=== PATIENT | male | born 1990 | race Caucasian/White ===

== ENCOUNTER 2023-10-26 15:31 | Outpatient (OUT) | payer OTHER, SELFPAY ==
[2023-10-26 15:54] LABS: Basophils Absolute Auto 0.1 10^3/uL (0.0-0.1); Basophils Percent Auto 0.6 % (0.2-2.0); Eosinophils Absolute Auto 0.1 10^3/uL (0.0-0.7); Eosinophils Percent Auto 1.7 % (0.9-7.0); Hematocrit 40.2 % (42.0-54.0); Hemoglobin 13.5 g/dL (14.0-18.0); Immature Granulocytes Abs Auto 0.18 10^3/uL (0.00-0.03); Immature Granulocytes Pct Auto 2.2 % (0.0-0.5); Lymphocytes Absolute Auto 2.2 10^3/uL (1.2-3.8); Mean Corpuscular HGB Conc 33.6 g/dL (29.9-35.2); Mean Corpuscular Hemoglobin 28.8 pg (25.9-34.0); Mean Corpuscular Volume 85.7 fL (80.0-94.0); Mean Platelet Volume 11.6 fL (9.5-13.5); Monocytes Absolute Auto 0.6 10^3/uL (0.3-0.8); Monocytes Percent Auto 6.8 % (1.7-12.0); Neutrophils Absolute Auto 5.1 10^3/uL (1.4-6.5); Neutrophils Percent Auto 61.7 % (43.0-75.0); Platelet Count 230 10^3/uL (150-450); Red Blood Count 4.69 10^6/uL (4.70-6.10); Red Cell Distribution Width 12.7 % (11.0-15.0); White Blood Count 8.2 10^3/uL (4.0-11.0)
== END 2023-10-26 15:32 | disposition home or self-care (01) ==
LOC: LAB 15:34
PROVIDERS: PCP Internal Medicine; Visit Provider Internal Medicine
DX: D72.89 Other specified disorders of white blood cells (principal)
CPT/HCPCS: 36415; 85025

== ENCOUNTER 2023-11-17 07:46 | Outpatient (RCR) | payer OTHER, SELFPAY ==
[2023-11-17 14:47] LABS: Basophils Absolute Auto 0.1 10^3/uL (0.0-0.1); Basophils Percent Auto 0.8 % (0.2-2.0); Eosinophils Absolute Auto 0.2 10^3/uL (0.0-0.7); Eosinophils Percent Auto 2.1 % (0.9-7.0); Hematocrit 43.8 % (42.0-54.0); Hemoglobin 14.8 g/dL (14.0-18.0); Immature Granulocytes Abs Auto 0.16 10^3/uL (0.00-0.03); Immature Granulocytes Pct Auto 1.9 % (0.0-0.5); Lymphocytes Absolute Auto 2.1 10^3/uL (1.2-3.8); Lymphocytes Percent Auto 24.2 % (20.5-60.0); Mean Corpuscular HGB Conc 33.8 g/dL (29.9-35.2); Mean Corpuscular Hemoglobin 29.4 pg (25.9-34.0); Mean Corpuscular Volume 87.1 fL (80.0-94.0); Mean Platelet Volume 11.9 fL (9.5-13.5); Monocytes Absolute Auto 0.5 10^3/uL (0.3-0.8); Monocytes Percent Auto 5.6 % (1.7-12.0); Neutrophils Absolute Auto 5.7 10^3/uL (1.4-6.5); Neutrophils Percent Auto 65.4 % (43.0-75.0); Platelet Count 239 10^3/uL (150-450); Red Blood Count 5.03 10^6/uL (4.70-6.10); Red Cell Distribution Width 12.6 % (11.0-15.0); White Blood Count 8.6 10^3/uL (4.0-11.0)
[2023-11-17 14:53] LABS: Erythrocyte Sedimentation Rate 42 mm/hr (<=15)
[2023-11-17 15:17] LABS: C Reactive Protein 0.51 mg/dL (<=0.50); Lactate Dehydrogenase 133 U/L (85-227)
[2023-11-18 15:08] LABS: Albumin 3.8 g/dL (2.9-4.4); Alpha-1-Globulin 0.2 g/dL (0.0-0.4); Alpha-2-Globulin 0.9 g/dL (0.4-1.0); Gamma Globulin 0.9 g/dL (0.4-1.8); Immunoglobulin A, Qn, Serum 164 mg/dL (90-386); Immunoglobulin G, Qn, Serum 1002 mg/dL (603-1613); Immunoglobulin M, Qn, Serum 99 mg/dL (20-172); Protein, Total 6.8 g/dL (6.0-8.5)
== END 2023-11-27 23:59 | disposition home or self-care (01) ==
LOC: INF 07:46
PROVIDERS: PCP Internal Medicine; Visit Provider Internal Medicine Hematology & Oncology
DX: D72.89 Other specified disorders of white blood cells (principal); D64.9 Anemia, unspecified
CPT/HCPCS: 36415; 82784; 83615; 84155; 84165; 85025; 85652; 86140; 86334; G0463

== ENCOUNTER 2023-12-18 10:41 | Outpatient (OUT) | payer OTHER, SELFPAY ==
--- OUTSIDE RECORDS SUMMARY | 2023-12-18 10:45 | XMS_ITS | CCD ---
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 Instructor Name Role Phone SIRENA GUADARRAMA Attending Unavailable BALLTONIO Primary Care Unavailable BALL, DR MEYER Primary Care Unavailable BALL, DR MEYER Consulting Unavailable BALL, DR MEYER Attending Unavailable BALL, DR MEYER Admitting Unavailable BALL, DR MEYER Primary Care Unavailable REQUEST, DR BENITEZ LISTED Consulting Unavaila ble REQUEST, DR BENITEZ LISTED Attending Unavaila ble REQUEST, DR BENITEZ LISTED Admitting Unavaila ble BALL, DR MEYER Primary Care Unavailable BALL, DR MEYER Attending Unavailable BALL, DR MEYER Admitting Unavailable BALL, DR MEYER Primary Care Unavailable BALL, DR MEYER Attending Unavailable BALL, DR MEYER Admitting Unavailable BALL, DR MEYER Admitting Unavailable BALL, DR MEYER Primary Care Unavailable BALL, DR MEYER Consulting Unavailable BALL, DR MEYER Attending Unavailable Ball, Tonio Unavailable NON STAFF Attending Provider Unavailable NON STAFF Attending Unavailable NON STAFF Admitting Unavailable NON STAFF Attending Provider Unavailable Allergies Allergy Classification Reported Allergen(s) Allergy Type Date of Onset Reaction(s) Facility (1 source) Azithromycin Drug Allergy 1 [facility] Repository (2 sources) Azithromycin Drug Allergy 3 Unknown [employer] Other (1 source) Azithromycin Drug Allergy 4 [facility] Repository Medications Current Medications Medication Drug Class(es) Dates Sig (Normalized) Sig (Original) 0.5 ML tirzepatide 10 MG/ML Auto-Injector [Mounjaro] (1 source) Start: 03-30-2023 inject 0.5 mg by subcutaneous injection every week Mounjaro 5 MG/0.5ML 0.5MG Subcutaneous weekly for 28 days Mar, Active 0.5 ML tirzepatide 5 MG/ML Auto-Injector [Mounjaro] (1 source) Start: 03-30-2023 Mounjaro 2.5 MG/0.5ML as directed Subcutaneous weekly for 28 days Mar, Active hydrocortisone 10 mg/ml / neomycin 3.5 mg/ml / polymyxin b [id number] unt/ml otic suspension (2 sources) Aminoglycoside Antibacterial, Polymyxin-class Antibacterial, Corticosteroid Start: 03-30-2023 Neomycin-Polymyxi n-HC 3.5-65315-2 4 drops into affected ear Otic Three times a day for 7 days Mar, Active losartan potassium 25 mg oral tablet (5 sources) Angiotensin 2 Receptor Laurent Start: 10-23-2023 take 25 mg by mouth once daily Losartan Active 25 MG PO Daily October 23, 2023 12:00am Start: 03-30-2023 take 1 tablet by franklin th every twenty-four hours Losartan Potassium 25 MG 1 tablet Orally Once a day for 30 days Mar, Active metFORMIN hydrochloride 500 mg / SITagliptin 50 mg oral tablet (5 sources) Biguanide, Dipeptidyl Peptidase 4 Inhibitor Start: 10-23-2023 take 1 tablet by mouth twice daily Sitagliptin Phos-Metformin (Janumet) 50-500 mg tablet Active 1 TAB PO Twice daily October 23, 2023 12:00am Janumet XR 50-50 0 mg TAKE 1 TABLET TWICE A DAY WITH FOOD Active Tirzepatide (3 sources) Start: 10-26-2023 inject 7.5 mg by subcutaneous injection every week Tirzepatide Active 7.5 MG SUBCUT every week 2 October 26, 2023 9:50am tiZANidine 4 mg oral tablet (5 sources) Central alpha-2 Adrenergic Agonist Start: 10-23-2023 take 4 mg by mouth once daily at bedtime Tizanidine Active 4 MG PO Daily at bedtime October 23, 2023 12:00am Start: 11-09-2020 take 0.5-1 tablets b y mouth once at bedtime tiZANidine HCl 4 MG 1/2 - 1 Tablet Orally q HS for 10 days October, Active Completed/Discontinued Medications Medication Drug Class(es) Dates Sig (Normalized) Sig (Original) Tirzepatide (6 sources) Start: 10-16-2023 End: 10-26-2023 Tirzepatide (Mounjaro) 5 mg/0.5 mL pen injector Discontinued 5 MG SUBCUT every week 2 October 16, 2023 1:34pm October 26, 2023 9:51am Start: 10-16-2023 End: 10-16-2023 Tirzepatide (Mounjaro) 5 mg/ 0.5 mL pen injector Discontinued 5 MG SUBCUT every week October 16, 2023 12:00am October 16, 2023 1:34pm Problems Active Problems Problem Classification Problem Date Documented Date Episodic/Chronic Diabetes mellitus with complications (10 sources) Type 2 diabetes mellitus; Translations: [Type 2 diabetes mellitus with hyperglycemia] Chronic Diabetes mellitus without complication (4 sources) Type 2 diabetes mellitus without complications; Translations: [TYPE 2 DM WITHOUT COMPLICATIONS] Onset: 05-08-2021 Chronic Diseases of white blood cells (6 sources) Left shifted white blood cells; Translations: [Other specified disorders of white blood cells] 10-26-2023 Chronic Essential hypertension (9 sources) Essential hypertension; Translations: [Essential (primary) hypertension] Chronic Other diseases of veins and lymphatics (5 sources) Peripheral venous insufficiency; Translations: [Venous insufficiency (chronic) (peripheral)] 10-24-2023 Episodic Other diseases of veins and lymphatics (4 sources) Venous insufficiency (chronic) (peripheral); Translations: [Venous (peripheral) insufficiency, unspecified] Episodic Other ear and sense organ disorders (1 source) Diffuse otitis externa, right ear Episodic Other nutritional; endocrine; and metabolic disorders (2 sources) Severe obesity; Translations: [Morbid (severe) obesity due to excess calories] Chronic Other nutritional; endocrine; and metabolic disorders (2 sources) Body mass index 40+ - severely obese; Translations: [Body mass index (BMI) 40.0-44.9, adult] Chronic Other nutritional; endocrine; and metabolic disorders (1 source) Morbid (severe) obesity due to excess calories Chronic Other nutritional; endocrine; and metabolic disorders (1 source) Body mass index (BMI) 40.0-44.9, adult Chronic Spondylosis; intervertebral disc disorders; other back problems (2 sources) Prolapsed lumbar intervertebral disc; Translations: [Other intervertebral disc displacement, lumbar region] Chronic Unclassified (3 sources) CONTACT W/AND (SUSP) EXPOS COVID-19; Translations: [CONTACT W/AND (SUSP) EXPOS COVID-19] Onset: 04-30-2021 Viral infection (1 source) COVID-19; Translations: [COVID-19] Onset: 04-14-2021 Past or Other Problems Problem Classification Problem Date Documented Da te Episodic/Chronic Other aftercare (1 source) 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; Translations: [[facility] USE ORAL HYPOGLYCEMIC DX] Onset: 06-19-2021 Episodic Unclassified (1 source) CONTACT W/AND (SUSP) EXPOS COVID-19; Translations: [CONTACT W/AND (SUSP) EXPOS COVID-19] Onset: 04-18-2021 Results Test Name Value Interpretation Reference Range Facility Basophils Auto (Bld) [#/Vol] on 10-26-2023 Basophils (Bld) [#/Vol] 0.1 10 3/uL 0.0-0.1 [facility] Basophils/100 WBC Auto (Bld) on 10-26-2023 Basophils/100 WBC (Bld) 0.6 % 0.2-2.0 [facility] Eosinophils/100 WBC Auto (Bl d)on 10-26-2023 Eosinophils/100 WBC (Bld) 1.7 % 0.9-7.0 [facility] Erythrocyte distribution wid th Auto (RBC) [Ratio]on 10-26-2023 Erythrocyte distribution width (RBC) [Ratio] 12.7 % 11.0-15.0 [facility] Hematocrit Auto (Bld) [Volum e fraction]on 10-26-2023 Hematocrit (Bld) [Volume fraction] 40.2 % 42.0-54.0 [facility] Hemoglobin [Mass/volume] in Bloodon 10-26-2023 Hemoglobin (Bld) [Mass/Vol] 13.5 g/dL 14.0-18.0 [facility] Lucien 10-26-2023 L Specimen: BP Received: 10/28/23 Status: MENDEZ Brown Num: [id number] Spec Type: Impression Subm Dr: Tonio Kelly DO Tissues: PATHPER Procedures: PATHREVIEW Age/ Patient Sex Location Account Attending Physician Kenrick Zaragoza 33/M [facility] [id number] NON STAFF SPEC NUM: BP RECD: 10/28/23 STATUS: MENDEZ BROWN NUM: [id number] KRISTYN: 10/26/23-[address]: Tonio Kelly DO ENTERED: 10/28/[address] [facility] [address]: Marco Antonio Pepper SPEC TYPE: Impression DEPT: ELODIA James ENTERED BY: [id number] RECV BY: [id number] ORDERED: PATHREVIEW ORDERED: PATHREVIEW Pathologist Review Mild normocytic anemia. Occasional atypical lymphocytes are noted. Reactive versus neoplastic. [id number] Specimen: [id number] Received: 10/28/23 Status: MENDEZ Stoddardliana Num: [id number] Spec Type: Impression Subm Dr: Tonio Kelly DO Tissues: PATHPER Procedures: PATHREVIEW Patient: Kenrick Zaragoza [id number] (Continued) Signed (signatur e on file) Jesus Mack MD 10/28/23 1534 Normal [facility] - Hematology and Cell countson 10-26-2023 Immature granulocytes/100 WBC (Bld) 2.2 % 0.0-0.5 [facility] Leukocytes [#/volume] correc ladi for nucleated erythrocytes in Blood by Automated counon 10-26-2023 WBC corrected for nucl RBC Auto (Bld) [#/Vol] 8.2 10 3/uL 4.0-11.0 [facility] Lymphocytes Auto (Bld) [#/Vo l]on 10-26-2023 Lymphocytes (Bld) [#/Vol] 2.2 10 3/uL 1.2-3.8 [facility] Lymphocytes/100 WBC Auto (Bl d)on 10-26-2023 Lymphocytes/100 WBC (Bld) 27.0 % 20.5-60.0 [facility] MCH Auto (RBC) [Entitic mass ]on 10-26-2023 MCH (RBC) [Entitic mass] 28.8 pg 25.9-34.0 [facility] MCHC Auto (RBC) [Mass/Vol]on 10-26-2023 MCHC (RBC) [Mass/Vol] 33.6 g/dL 29.9-35.2 [facility] MCV Auto (RBC) [Entitic vol] on 10-26-2023 MCV (RBC) [Entitic vol] 85.7 fL 80.0-94.0 [facility] Monocytes Auto (Bld) [#/Vol] on 10-26-2023 Monocytes (Bld) [#/Vol] 0.6 10 3/uL 0.3-0.8 [facility] Monocytes/100 WBC Auto (Bld) on 10-26-2023 Monocytes/100 WBC (Bld) 6.8 % 1.7-12.0 [facility] Neutrophils Auto (Bld) [#/Vo l]on 10-26-2023 Neutrophils (Bld) [#/Vol] 5.1 10 3/uL 1.4-6.5 [facility] Neutrophils/100 WBC Auto (Bl d)on 10-26-2023 Neutrophils/100 WBC (Bld) 61.7 % 43.0-75.0 [facility] No Panel Informationon 10-25 Add Manual Differential See comment [facility] Comment on above: SEE SCANNED REPORT Eosinophils # (Auto) 0.1 10 3/uL 0.0-0.7 [facility] Immature Granulocyte # (Auto) 0.18 10 3/uL 0.00-0.03 [facility] Platelet mean volume Auto (B ld) [Entitic vol]on 10-26-2023 Platelet mean volume (Bld) [Entitic vol] 11.6 fL 9.5-13.5 [facility] Platelets Auto (Bld) [#/Vol] on 10-26-2023 Platelets (Bld) [#/Vol] 230 10 3/uL 150-450 [facility] RBC Auto (Bld) [#/Vol]on RBC (Bld) [#/Vol] 4.69 10 6/uL 4.70-6.10 [facility] Basophils Auto (Bld) [#/Vol] on 10-24-2023 Basophils (Bld) [#/Vol] 0.1 10 3/uL 0.0-0.1 [facility] Basophils/100 WBC Auto (Bld) on 10-24-2023 Basophils/100 WBC (Bld) 0.8 % 0.2-2.0 [facility] Cholesterol in LDL Calc [Mas s/Vol]on 10-24-2023 Cholesterol in LDL [Mass/Vol] 99.4 mg/dL [facility] Comment on above: <100 mg/dl [id number] 0-129 mg/dl NEAR OR ABOVE [id number] mg/dl BORDERLINE [id number] mg/dl HIGH>190 mg/dl VERY HIGH Cholesterol in VLDL Calc [Ma ss/Vol]on 10-24-2023 Cholesterol in VLDL [Mass/Vol] 21.6 mg/dL [facility] Eosinophils/100 WBC Auto (Bl d)on 10-24-2023 Eosinophils/100 WBC (Bld) 2.2 % 0.9-7.0 [facility] Erythrocyte distribution wid th Auto (RBC) [Ratio]on 10-24-2023 Erythrocyte distribution width (RBC) [Ratio] 12.5 % 11.0-15.0 [facility] Estimated glomerular filtrat ion rate (GFR) non- Americanon 10-24-2023 GFR/1.73 sq M.predicted among non-blacks MDRD (S/P/Bld) [Vol rate/Area] mL/min/{1.73_m2} >=60 [facility] Glucose mean value [Mass/vol ume] in Blood Estimated from glycated hemoglobinon 10-24-2023 Average glucose Estimated from glycated hemoglobin (Bld) [Mass/Vol] 140 mg/dL [facility] Hematocrit Auto (Bld) [Volum e fraction]on 10-24-2023 Hematocrit (Bld) [Volume fraction] 42.6 % 42.0-54.0 [facility] Hemoglobin [Mass/volume] in Bloodon 10-24-2023 Hemoglobin (Bld) [Mass/Vol] 14.3 g/dL 14.0-18.0 [facility] Laboratory - Chemistry and C hemistry - challengeon 10-24-2023 Calcium [Mass/Vol] 9.2 mg/dL 8.5-10.1 [facility] Chloride [Moles/Vol] 104 mmol/L 98-107 [facility] Cholesterol [Mass/Vol] 163 mg/dL <=200 [facility] Cholesterol in HDL [Mass/Vol] 42 mg/dL 40-60 [facility] Comment on above: > or =60 mg/dl - LOW CARDIOVASCULAR RISK<40 mg/dl - HIGH CARDIOVASCULAR RISK CO2 [Moles/Vol] 25.6 mmol/L 21.0-32.0 [facility] Creatinine [Mass/Vol] 0.65 mg/dL 0.70-1.30 [facility] GFR/1.73 sq M.predicted MDRD (S/P/Bld) [Vol rate/Area] mL/min/{1.73_m2} >=60 [facility] Glucose [Mass/Vol] 143 mg/dL 74-106 [facility] Potassium [Moles/Vol] 4.0 mmol/L 3.5-5.1 [facility] Sodium [Moles/Vol] 140 mmol/L 136-145 [facility] Triglyceride [Mass/Vol] 108 mg/dL <=150 [facility] Urea nitrogen [Mass/Vol] 9.0 mg/dL 7.0-18.0 [facility] Urea nitrogen/Creatinine [Mass ratio] 13.8 mg/mg [facility] Laboratory - Hematology and Cell countson 10-24-2023 HbA1c (Bld) [Mass fraction] 6.5 % 4.5-6.2 [facility] Comment on above: ADA RECOMMENDED LIMI T 4.0 - 6.0ADA THERAPEUTIC TARGET < 7.0ACTION SUGGESTED> 7.0 Immature granulocytes/100 WBC (Bld) 3.9 % 0.0-0.5 [facility] Leukocytes [#/volume] correc ladi for nucleated erythrocytes in Blood by Automated counon 10-24-2023 WBC corrected for nucl RBC Auto (Bld) [#/Vol] 7.1 10 3/uL 4.0-11.0 [facility] Lymphocytes Auto (Bld) [#/Vo l]on 10-24-2023 Lymphocytes (Bld) [#/Vol] 1.7 10 3/uL 1.2-3.8 [facility] Lymphocytes/100 WBC Auto (Bl d)on 10-24-2023 Lymphocytes/100 WBC (Bld) 23.2 % 20.5-60.0 [facility] MCH Auto (RBC) [Entitic mass ]on 10-24-2023 MCH (RBC) [Entitic mass] 28.8 pg 25.9-34.0 [facility] MCHC Auto (RBC) [Mass/Vol]on 10-24-2023 MCHC (RBC) [Mass/Vol] 33.6 g/dL 29.9-35.2 [facility] MCV Auto (RBC) [Entitic vol] on 10-24-2023 MCV (RBC) [Entitic vol] 85.7 fL 80.0-94.0 [facility] Monocytes Auto (Bld) [#/Vol] on 10-24-2023 Monocytes (Bld) [#/Vol] 0.6 10 3/uL 0.3-0.8 [facility] Monocytes/100 WBC Auto (Bld) on 10-24-2023 Monocytes/100 WBC (Bld) 7.7 % 1.7-12.0 [facility] Neutrophils Auto (Bld) [#/Vo l]on 10-24-2023 Neutrophils (Bld) [#/Vol] 4.4 10 3/uL 1.4-6.5 [facility] Neutrophils/100 WBC Auto (Bl d)on 10-24-2023 Neutrophils/100 WBC (Bld) 62.2 % 43.0-75.0 [facility] No Panel Informationon 10-23 Eosinophils # (Auto) 0.2 10 3/uL 0.0-0.7 [facility] Immature Granulocyte # (Auto) 0.28 10 3/uL 0.00-0.03 [facility] Nucleated Red Blood Cells/100 WBC 0 [facility] Platelet mean volume Auto (B ld) [Entitic vol]on 10-24-2023 Platelet mean volume (Bld) [Entitic vol] 11.3 fL 9.5-13.5 [facility] Platelets Auto (Bld) [#/Vol] on 10-24-2023 Platelets (Bld) [#/Vol] 214 10 3/uL 150-450 [facility] RBC Auto (Bld) [#/Vol]on RBC (Bld) [#/Vol] 4.97 10 6/uL 4.70-6.10 [facility] Serum or plasma anion gap de terminationon 10-24-2023 Anion gap [Moles/Vol] 14.4 mmol/L [facility] Serum or plasma total choles terol/high density lipoprotein (HDL) cholesterol mass reji 10-24-2023 Cholesterol.total/Ch olesterol in HDL [Mass ratio] 3.9 {ratio} [facility] Comment on above: 3.3 - 4.4 LOW RISK4. 4 - 7.1 AVERAGE RISK7.1 - 11.0 MODERATE RISK>11.0 HIGH RISK CBC AUTO DIFFon 05-08-2021 BASO # 0.1 103/ul Normal 0.0-0.1 [facility] Comment on above: Performed By: #### D ATCBC #### [facility] [address] [place] [address] Dr. Edinson Hartmann Basophils/100 WBC (Bld) 1.6 % Normal 0.2-2.0 [facility] Comment on above: Performed By: #### D ATCBC #### [facility] [address] [place] [address] Dr. Edinson Hartmann EO # 0.2 103/ul Normal 0.0-0.7 [facility] Comment on above: Performed By: #### D ATCBC #### [facility] [address] [place] [address] Dr. Edinson Hartmann Eosinophils/100 WBC (Bld) 2.0 % Normal 0.9-7.0 [facility] Comment on above: Performed By: #### D ATCBC #### [facility] [address] [place] [address] Dr. Edinson Hartmann Erythrocyte distribution width (RBC) [Ratio] 12.7 % Normal 11.0-15.0 [facility] Comment on above: Performed By: #### D ATCBC #### [facility] [address] [place] [address] Dr. Edinson Hartmann Hematocrit (Bld) [Volume fraction] 44.1 % Normal 42.0-54.0 [facility] Comment on above: Performed By: #### D ATCBC #### [facility] [address] [place] [address] Dr. Edinson Hartmann Hemoglobin (Bld) [Mass/Vol] 14.1 g/dL Normal 14.0-18.0 [facility] Comment on above: Performed By: #### D ATCBC #### [facility] [address] [place] [address] Dr. Edinson Hartmann IG # 0.52 10e3/ul Critically high 0.00-0.03 [facility] Comment on above: Performed By: #### D ATCBC #### [facility] [address] [place] [address] Dr. Edinson Hartmann IG % 6.9 % Critically high 0.0-0.5 [facility] Comment on above: Performed By: #### D ATCBC #### [facility] [address] [place] [address] Dr. Edinson Hartmann LYMPH # 1.5 103/ul Normal 1.2-3.8 [facility] Comment on above: Performed By: #### D ATCBC #### [facility] [address] [place] [address] Dr. Edinson Hartmann Lymphocytes/100 WBC (Bld) 20.5 % Normal 20.5-60.0 [facility] Comment on above: Performed By: #### D ATCBC #### [facility] [address] [place] [address] Dr. Edinson Hartmann MCH (RBC) [Entitic mass] 27.9 pg Normal 25.9-34.0 [facility] Comment on above: Performed By: #### D ATCBC #### [facility] [address] [place] [address] Dr. Edinson Hartmann MCHC (RBC) [Mass/Vol] 32.0 g/dL Normal 29.9-35.2 [facility] Comment on above: Performed By: #### D ATCBC #### [facility] [address] [place] [address] Dr. Edinson Hartmann MCV (RBC) [Entitic vol] 87.2 fL Normal 80.0-94.0 [facility] Comment on above: Performed By: #### D ATCBC #### [facility] [address] [place] [address] Dr. Edinson Hartmann MONO # 0.5 103/ul Normal 0.3-0.8 [facility] Comment on above: Performed By: #### D ATCBC #### [facility] [address] [place] [address] Dr. Edinson Hartmann Monocytes/100 WBC (Bld) 7.2 % Normal 1.7-12.0 [facility] Comment on above: Performed By: #### D ATCBC #### [facility] [address] [address] [address] Edinson Hartmann NEUT # 4.7 103/ul Normal 1.4-6.5 [facility] Comment on above: Performed By: #### D ATCBC #### [facility] [address] [address] [address] Edinson Hartmann Neutrophils/100 WBC (Bld) 61.8 % Normal 43.0-75.0 [facility] Comment on above: Performed By: #### D ATCBC #### [facility] [address] [place] [address] Dr. Edinson Hartmann Platelet mean volume (Bld) [Entitic vol] 12.3 fL Normal 9.5-13.5 [facility] Comment on above: Performed By: #### D ATCBC #### [facility] [address] [place] [address] Dr. Edinson Hartmann PLT 183 103/ul Normal 150-450 [facility] Comment on above: Performed By: #### D ATCBC #### [facility] [address] [place] [address] Dr. Edinson Hartmann RBC 5.06 106/ul Normal 4.70-6.10 [facility] Comment on above: Performed By: #### D ATCBC #### [facility] [address] [place] [address] Dr. Edinson Hartmann WBC 7.5 103/ul Normal 4.0-11.0 [facility] Comment on above: Performed By: #### D ATCBC #### [facility] [address] [place] [address] Dr. Edinson Hartmann LESLY- BMP WITH LIPIDon 2020 Anion gap [Moles/Vol] 12.6 mmol/L Normal [facility] Comment on above: Performed By: #### D ATBMP #### [facility] [address] [place] [address] Dr. Edinson Hartmann Calcium [Mass/Vol] 9.0 mg/dL Normal 8.4-10.2 [facility] Comment on above: Performed By: #### D ATBMP #### [facility] [address] [address] [address] Edinson Hartmann Chloride [Moles/Vol] 102 mmol/L Normal 98-107 [facility] Comment on above: Performed By: #### D ATBMP #### [facility] [address] [address] [address] Edinson Hartmann Cholesterol [Mass/Vol] 163 mg/dL Normal <=200 [facility] Comment on above: Performed By: #### D ATBMP #### [facility] [address] [address] [address] Edinson Hartmann Cholesterol in HDL [Mass/Vol] 44 mg/dL Normal [facility] Comment on above: Performed By: #### D ATBMP #### [facility] [address] [address] [address] Edinson Hartmann Cholesterol in LDL [Mass/Vol] 97.4 mg/dL Normal [facility] Comment on above: Performed By: #### D ATBMP #### [facility] [address] [address] [address] Edinson Hartmann CO2 [Moles/Vol] 26.9 mmol/L Normal 22.0-30.0 [facility] Comment on above: Performed By: #### D ATBMP #### [facility] [address] [place] [address] Dr. Edinson Hartmann Creatinine [Mass/Vol] 0.59 mg/dL Critically low 0.66-1.25 [facility] Comment on above: Performed By: #### D ATBMP #### [facility] [address] [place] [address] Dr. Edinson Hartmann EGFR-AF TURKS AND CAICOS ISLANDER >60 Normal >=60 [facility] Comment on above: Performed By: #### D ATBMP #### [facility] [address] [address] [address] Edinson Hartmann EGFR-NON AF TURKS AND CAICOS ISLANDER >60 Normal >=60 [facility] Comment on above: Performed By: #### D ATBMP #### [facility] [address] [address] [address] Edinson Hartmann Glucose [Mass/Vol] 191 mg/dL Critically high 74-106 [facility] Comment on above: Performed By: #### D ATBMP #### [facility] [address] [address] [address] Edinson Hartmann HDL NORMAL > or = 60 mg/dl - LOW CARDIOVASCULAR RISK <40 mg/dl - HIGH CARDIOVASCULAR RISK Normal [facility] Comment on above: Performed By: #### D ATBMP #### [facility] [address] [address] [address] Edinson Hartmann LDL CALC NORMAL SEE BELOW Normal [facility] Comment on above: Result Comment: <100 mg/dl OPTIMAL 100 - 129 mg/dl NEAR OR ABOVE OPTIMAL 130 - 159 mg/dl BORDERLINE HIGH 160 - 189 mg/dl HIGH >190 mg/dl VERY HIGH Performed By: #### D ATBMP #### [facility] [address] [address] [address] Edinson Hartmann Potassium [Moles/Vol] 4.5 mmol/L Normal 3.4-5.0 [facility] Comment on above: Performed By: #### D ATBMP #### [facility] - [facility] [address] [address] [address] Edinson Hartmann Sodium [Moles/Vol] 137 mmol/L Normal 137-145 [facility] Comment on above: Performed By: #### D ATBMP #### [facility] [address] [address] [address] Edinson Hartmann Triglyceride [Mass/Vol] 108 mg/dL Normal <=150 [facility] Comment on above: Performed By: #### D ATBMP #### [facility] [address] [address] [address] Edinson Hartmann Urea nitrogen [Mass/Vol] 17.0 mg/dL Normal 9.0-20.0 [facility] Comment on above: Performed By: #### D ATBMP #### [facility] [address] [address] [address] Edinson Hartmann Urea nitrogen/Creatinine [Mass ratio] 28.8 mg/mg Normal [facility] Comment on above: Performed By: #### D ATBMP #### [facility] [address] [address] [address] Edinson Hartmann VLDL CALC 21.6 mg/dL Normal [facility] Comment on above: Performed By: #### D ATBMP #### [facility] [address] [address] [address] Edinson Hartmann GLYCOHEMOGLOBIN A1Con 2020 ADA RECOMMENDATION ADA THERAPEUTIC TARGET 6.0 - 7.0 ACTION SUGGESTED > 7.0 Normal [facility] Comment on above: Performed By: #### D ATA1C #### [facility] [address] [place] [address] Dr. Edinson Hartmann Glucose [Mass/Vol] 240 mg/dL Normal [facility] Comment on above: Performed By: #### D ATA1C #### [facility] [address] [place] [address] Dr. Edinson Hartmann HbA1c (Bld) [Mass fraction] 10.0 % Critically high <=6.0 [facility] Comment on above: Performed By: #### D ATA1C #### [facility] [address] [place] [address] Dr. Edinson Hartmann Covid-19 PCR ([facility])on 03-30 SARS-CoV-2 (COVID-19) RNA BRYANT+probe Ql (Unsp spec) Not detected Normal NOT DETECTED [facility] Comment on above: Result Comment: This test is not yet approved or cleared by the [place] FDA. When there are no FDA-approved or cleared tests available, and other criteria are met, FDA can make tests available under an emergency access mechanism called an Emergency Use Authorization (EUA). The EUA for this test is supported by the [employer] Operator of Health and Human Service's (HHS's) declaration that circumstances exist to justify the emergency use of in vitro diagnostics for the detection and/or diagnosis of the virus that causes COVID-19. This EUA will remain in effect (meaning this test can be used) for the duration of the COVID-19 declaration justifying emergency of IVDs, unless it is terminated or revoked by FDA (after which the test may no longer be used). When diagnostic testing is negative, the possibility of a false negative should be considered in the context of a patient's recent exposures and the presence of clinical signs and symptoms consistent with SARS-CoV-2. Performed By: #### C VDTB #### [facility] [address] [place], [place] [id number] Dr. Edinson Hartmann Covid-19 PCR ([facility])on 03-29 SARS-CoV-2 (COVID-19) RNA BRYANT+probe Ql (Unsp spec) Detected Critically abnormal NOT DETECTED [facility] Comment on above: Result Comment: This test is not yet approved or cleared by the [place] FDA. When there are no FDA-approved or cleared tests available, and other criteria are met, FDA can make tests available under an emergency access mechanism called an Emergency Use Authorization (EUA). The EUA for this test is supported by the [place] of Health and Human Service's (HHS's) declaration that circumstances exist to justify the emergency use of in vitro diagnostics for the detection and/or diagnosis of the virus that causes COVID-19. This EUA will remain in effect (meaning this test can be used) for the duration of the COVID-19 declaration justifying emergency of IVDs, unless it is terminated or revoked by FDA (after which the test may no longer be used). Performed By: #### C VDTB #### [facility] [address] [place], [place] [id number] Dr. Edinson Hartmann Vital Signs Date Time Vital Sign Value Performing Clinician Facility 10-26-2023 09:070400 Body height 190.5 cm [facility] 10-26-2023 09:070400 Body mass index (BMI) [Ratio] 50.8 kg/m2 [facility] 10-26-2023 09:070400 Body weight 184.66 kg [facility] 10-26-2023 09:07-0400 Diastolic blood pressure 77 mm[Hg] [facility] 10-26-2023 09:07-0400 Heart rate 80 /min [facility] 10-26-2023 09:07-0400 Respiratory rate 12 /min [facility] 10-26-2023 09:07-0400 Systolic blood pressure 126 mm[Hg] [facility] 03-30-2023 09:45-0400 Body height 190.5 cm Tonio Drync Other [facility] Other 03-30-2023 09:45-0400 Body mass index (BMI) [Ratio] 49.39 kg/m2 Tonio Drync Other [facility] Other 03-30-2023 09:45-0400 Body weight 179.26 kg Tonio Drync Other [facility] Other 03-30-2023 09:45-0400 Diastolic blood pressure 96 mm[Hg] Tonio Drync Other [facility] Other 03-30-2023 09:45-0400 Respiratory rate 12 /min Tonio Drync Other [facility] Other 03-30-2023 09:45-0400 Systolic blood pressure 141 mm[Hg] Tonio Drync Other [facility] Other Encounters Encounter Date Encounter Type Care Provider Facility Start: 10-26-2023 End: 10-26-2023 ambulatory NON STAFF Facility:[facility] Start: 10-26-2023 End: 10-26-2023 Departed Referred [facility] Start: 10-26-2023 End: 10-26-2023 ambulatory [facility] Work Phone: Start: 10-26-2023 End: 10-26-2023 Patient encounter procedure [facility] Work Phone: Start: 10-24-2023 Non-patient / Non-visit [facility] Work Phone: Start: 10-24-2023 End: 10-24-2023 ambulatory [facility] Work Phone: Start: 10-24-2023 End: 10-24-2023 Departed Referred [facility] Start: 10-16-2023 Non-patient / Non-visit [facility] Work Phone: Start: 04-21-2023 End: 04-21-2023 ambulatory Tonio Kelly Other [facility] Other Start: 04-21-2023 Telephone encounter Tonio Kelly [facility] Start: 03-30-2023 End: 03-30-2023 ambulatory Tonio Kelly Other [facility] Other Start: 03-30-2023 Encounter for genera l adult medical examination without abnormal findings Tonio Kelly [facility] Start: 03-30-2023 Periodic preventive med est patient 18-39 yrs Tonio Kelly [facility] Start: 11-29-[address] TONIO KELLY Facili ty:[facility] Start: 05-08-2021 End: 05-20-[address] TONIO KELLY Facility:[facility] Start: 04-18-2021 End: 04-18-[address] TONIO KELLY Facility:[facility] Start: 04-09-2021 End: 04-09-[address] TONIO KELLY Facility:[facility] Start: 04-08-[address] [facility] Plan of Treatment Date Care Activity Detail Author [facility] Payers Date Payer Category Payer Unknown [id number] 1992 Unknown [id number] 2.16.84 [id number] 1992 Unknown [id number] 2.16.84 [id number] 1992 Unknown [id number] 2.16.84 [id number] 1992 Unknown [id number] 2.16.84 [id number] 1959 Self-pay 1957 Unknown [id number] Unknown [id number] 2.16.84 [id number] Unknown [id number] 2.16.8 [id number] Social History Date Type Detail Facility Sex Assigned At [facility] Other Start: 1990 Sex Assigned At Male F [facility] Medical Equipment Procedure Code Equipment Code Equipment Origin al Text Equipment Identifier Dates Start: 04-05-2021 Evaluation note 04-21-2023 Note Date & Type Note Facility 04-21-2023 Evaluation note Encounter Date Diagnosis Assessment Notes Mar, Type 2 diabetes mellitus with hyperglycemia , without long-term current use of insulin (ICD-10 - E11.65) [facility] Other Evaluation note 03-30-2023 Note Date & Type Note Facility 03-30-2023 Evaluation note Encounter Date Diagnosis Assessment Notes Mar, Wellness examination (ICD-10 - Z00.00) Healthy diet and exercise. Reviewed age-appropriate preventive testing recommended. Mar, Type 2 diabetes mellitus with hyperglycemia, without long-term current use of insulin (ICD-10 - E11.65) This patient is following a comprehensive diabetic treatment plan. They are checking their feet daily for calluses and nonhealing ulcers. They are being seen for yearly dilated eye examinations. Goals: SBP less than 130, LDL less than 100, FBS less than 140, A1C less than 7%. They are checking their BS daily, will which are reviewed at the office visit. Continue regular routine monitoring of A1C,] Microalbumin, Dilated eye exam and Foot exam Mar, Primary hypertension (ICD-10 - I10) This patient is instructed to consume a healthy, low-fat, low-salt diet. They are also encouraged to continue exercise to achieve/maintain a normal BMI. Mar, Acute diffuse otitis externa of right ear (ICD-10 - H60.311) Keep ear clean and dry. Avoid use of QTips. Begin drops, call if fails to improve Mar, Morbid (severe) obesity due to excess calories (ICD-10 - E66.01) This patient has been instructed on a low-fat, high-fiber diet. They are instructed to reduce calories, portion sizes and snacks. It is recommended that they exercise for 30 minutes, 3-5 times weekly. Mar, Body mass index [BMI] 40.0-44.9, adult (ICD-10 - Z68.41) Mar, Chronic venous insufficiency (ICD-10 - I87.2) Avoid salt and elevate lower extremities, support stockings, inspect legs and feet daily for blisters and ulcerations. [facility] Other Evaluation note Note Date & Type Note Facility Evaluation note Diagnosis Onset Date Chronic venous insufficiency acute Left-shifted white blood cells acute Primary hypertension acute Type 2 diabetes mellitus with hyperglycemia acute [facility] Work Phone: History general Narrative - Reported Note Date & Type Note Facility History general Narrative - Reported Type Medical History Mixed hyperlipidemia Medical History Type 2 diabetes jessica itus with hyperglycemia Medical History Venous insufficiency (chronic) (peripheral) Medical History Cellulitis of right lower leg Surgical History tonsillectomy and adenoidectomy Hospitalization History see surgical hx [facility] Other Summary Purpose Family History No Family History Records FoundNo Family History Records FoundNo Family History Records Found Advance Directives Advance Directive Response Recorded Date/ Time Advance Directives No October 15, 024 8:58am Chief Complaint and Reason for Visit Chief Complaint Amb Documentation weightloss check Reason for Visit Chronic venous insuf ficiency Left-shifted white blood cells Primary hypertension Type 2 diabetes mellitus with hyperglycemia Chief Complaint Amb Documentation Unknown weightloss check Reason for Visit Chronic venous insuf ficiency Left-shifted white blood cells Primary hypertension Type 2 diabetes mellitus with hyperglycemia Chief Complaint Amb Documentation weightloss check Unknown Reason for Visit Chronic venous insuf ficiency Left-shifted white blood cells Primary hypertension Type 2 diabetes mellitus with hyperglycemia Additional Source Comments (unrecognized sect ion and content) No Status Records FoundNo Status Records FoundNo Status Records Found INFORMATION SOURCE (unrecogn ized section and content) DATE CREATED AUTHOR 04/09/[address] [facility] DATE CREATED AUTHOR AUTHOR'S ORGANIZ ATION 11/30/2021 [facility] DATE CREATED AUTHOR AUTHOR'S ORGANIZ ATION 10/30/2023 [facility] REASON FOR VISIT (unrecogniz ed section and content) [facility] Care Teams (unrecognized sec tion and content) Team Status: Active Member Role Status Dates Tonio Kelly , Primary Care Provider Active Team Status: Active Member Role Status Dates Tonio Kelly , Primary Care Provider Active Start: October 16, 2023 Sugey Dickey SHELLEY Attending Provider Active Start : October 16, 2023 Team Status: Active Member Role Status Dates Tonio Kelly , DO Primary Care Provide r, Attending Provider Active Start: October 24, 2023 Team Status: Inactive Member Role Status Dates Tonio Kelly , DO Primary Care Provide r, Attending Provider Active Start: October 26, 2023 End: October 26, 2023 Team Status: Inactive Member Role Status Dates NON STAFF Attending Provider Active Start: Ap 2023 End: October 24, 2023 Team Status: Inactive Member Role Status Dates NON STAFF Attending Provider Active Start: Ap 2023 End: October 26, 2023 Goals (unrecognized section and content) Goals may be documented in a n alternate section FOR RECORDS PERTAINING TO PATIENTS WHO ARE OR HAVE BEEN ENROLLED IN A CHEMICAL DEPENDENCY/SUBSTANCEABUSE PROGRAM, SOME INFORMATION MAY BE OMITTED. This clinical summary was aggregated from multiple sources. Caution should be exercised in using it in the provision of clinical care. This summary normalizes information from multiple sources, and as a consequence, information in this document may materially change the coding, format and clinical context of patient data. In addition, data may be omitted in some cases. CLINICAL DECISIONS SHOULD BE BASED ON THE PRIMARY CLINICAL RECORDS. [facility] [employer] [facility]. provides no warranty or guarantee of the accuracy or completeness of information in this document.
[2023-12-18 11:30] LABS: Basophils Absolute Auto 0.1 10^3/uL (0.0-0.1); Basophils Percent Auto 0.8 % (0.2-2.0); Eosinophils Absolute Auto 0.2 10^3/uL (0.0-0.7); Eosinophils Percent Auto 1.8 % (0.9-7.0); Hematocrit 44.2 % (42.0-54.0); Hemoglobin 14.7 g/dL (14.0-18.0); Immature Granulocytes Pct Auto 2.2 % (0.0-0.5); Lymphocytes Absolute Auto 2.1 10^3/uL (1.2-3.8); Lymphocytes Percent Auto 23.9 % (20.5-60.0); Mean Corpuscular HGB Conc 33.3 g/dL (29.9-35.2); Mean Corpuscular Hemoglobin 28.7 pg (25.9-34.0); Mean Corpuscular Volume 86.2 fL (80.0-94.0); Mean Platelet Volume 12.2 fL (9.5-13.5); Monocytes Absolute Auto 0.6 10^3/uL (0.3-0.8); Monocytes Percent Auto 6.3 % (1.7-12.0); Neutrophils Absolute Auto 5.8 10^3/uL (1.4-6.5); Platelet Count 227 10^3/uL (150-450); Red Blood Count 5.13 10^6/uL (4.70-6.10); Red Cell Distribution Width 12.2 % (11.0-15.0); White Blood Count 8.9 10^3/uL (4.0-11.0)
== END 2023-12-18 10:42 | disposition home or self-care (01) ==
LOC: LAB 10:43
PROVIDERS: PCP Internal Medicine; Visit Provider Internal Medicine Hematology & Oncology
DX: D72.89 Other specified disorders of white blood cells (principal); D64.9 Anemia, unspecified
CPT/HCPCS: 36415; 85025

== ENCOUNTER 2023-12-29 07:39 | Outpatient (RCR) | payer OTHER, SELFPAY | END 2023-12-29 14:44 | disposition home or self-care (01) | LOC: INF 07:39 | PROVIDERS: PCP Internal Medicine; Visit Provider Internal Medicine Hematology & Oncology | DX: D72.89 Other specified disorders of white blood cells (principal); D64.9 Anemia, unspecified | CPT/HCPCS: G0463 ==

== ENCOUNTER 2024-01-23 23:19 | Emergency (ER) | payer OTHER, SELFPAY ==
[2024-01-23 23:26] VITALS: BP 143/90; PULSE 92; TEMP 36.6; O2SAT 97; BMI 48.7
--- OUTSIDE RECORDS SUMMARY | 2024-01-23 23:26 | XMS_ITS | CCD ---
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 Name Role Phone SIRENA GUADARRAMA Attending Unavailable [...] Consulting Unavailable BALL, DR MEYER Attending Unavailable Salas, Tonio Unavailable NON STAFF Attending Provider Unavailable NON STAFF Attending Provider Unavailable MD Skylar Ghotra Attending Provider [phone] Skylar Ghotra Attending Unavailable Skylar Ghotra Admitting Unavailable NON STAFF Attending Unavailable NON STAFF Admitting Unavailable Allergies Allergy Classification Reported Allergen(s) Allergy Type Date of Onset Reaction(s) Facility (1 source) Azithromycin Drug Allergy 1 [facility] Repository (2 sources) Azithromycin Drug Allergy 3 Unknown [facility] Other (1 source) Azithromycin Drug Allergy 4 [facility] Repository Medications Current Medications Medication Drug [...] / neomycin 3.5 mg/ml / polymyxin b [id number] unt/ml otic suspension (2 sources) Aminoglycoside Antibacterial, Polymyxin-class Antibacterial, Corticosteroid Start: 03-30-2023 Neomycin-Polymyxi n-HC 3.5-92367-5 4 drops into affected ear Otic Three times a day for 7 days Mar, Active losartan potassium 25 mg oral tablet (6 sources) Angiotensin 2 Receptor Laurent Start: 10-23-2023 take 25 mg by mouth once daily Losartan Active 25 MG PO Daily October 23, 2023 12:00am Start: 03-30-2023 take 1 tablet by franklin th every twenty-four hours Losartan Potassium 25 MG 1 tablet Orally Once a day for 30 days Mar, Active metFORMIN hydrochloride 500 mg / SITagliptin 50 mg oral tablet (6 sources) Biguanide, Dipeptidyl Peptidase 4 Inhibitor Start: 10-23-2023 take 1 tablet by mouth twice daily Sitagliptin Phos-Metformin (Janumet) 50-500 mg tablet Active 1 TAB PO Twice daily October 23, 2023 12:00am Janumet XR 50-50 0 mg TAKE 1 TABLET TWICE A DAY WITH FOOD Active Tirzepatide (4 sources) Start: 10-26-2023 inject 7.5 mg by subcutaneous injection every week Tirzepatide Active 7.5 MG SUBCUT every week 2 October 26, 2023 9:50am tiZANidine 4 mg oral tablet (6 sources) Central alpha-2 Adrenergic Agonist Start: 10-23-2023 [...] Class(es) Dates Sig (Normalized) Sig (Original) Tirzepatide (8 sources) Start: 10-16-2023 End: 10-26-2023 Tirzepatide (Mounjaro) [...] Documented Date Episodic/Chronic Diabetes mellitus with complications (12 sources) Type 2 diabetes mellitus; Translations: [Type 2 diabetes mellitus with hyperglycemia] Chronic Diabetes mellitus without complication (4 sources) Type 2 diabetes mellitus without complications; Translations: [TYPE 2 DM WITHOUT COMPLICATIONS] Onset: 05-08-2021 Chronic Diseases of white blood cells (8 sources) Left shifted white blood cells; Translations: [Other specified disorders of white blood cells] 10-26-2023 Chronic Essential hypertension (11 sources) Essential hypertension; Translations: [Essential (primary) hypertension] Chronic Other diseases of veins and lymphatics (6 sources) Peripheral venous insufficiency; Translations: [Venous insufficiency (chronic) (peripheral)] 10-24-2023 Episodic Other diseases of veins and lymphatics (5 sources) Venous insufficiency (chronic) (peripheral); Translations: [Venous [...] Unclassified (3 sources) CONTACT W/AND (SUSP) EXPOS COVID-; Translations: [CONTACT W/AND (SUSP) EXPOS COVID-19] Onset: 04-30-2021 Viral infection (1 source) COVID-19; Translations: [COVID-19] Onset: 04-14-2021 Past or Other Problems Problem Classification Problem Date Documented Da te Episodic/Chronic Other aftercare (1 source) skilled nursing (current) use of oral hypoglycemic drugs; Translations: [RETIREMENT USE ORAL HYPOGLYCEMIC DX] Onset: 06-19-2021 Episodic Unclassified (1 source) CONTACT W/AND (SUSP) EXPOS COVID-19; Translations: [CONTACT W/AND (SUSP) EXPOS COVID-19] Onset: 04-18-2021 Results Test Name Value Interpretation Reference Range Facility Basophils Auto (Bld) [#/Vol] on 12-18-2023 Basophils (Bld) [#/Vol] 0.1 10 3/uL 0.0-0.1 [facility] Basophils/100 WBC Auto (Bld) on 12-18-2023 Basophils/100 WBC (Bld) 0.8 % 0.2-2.0 [facility] Eosinophils/100 WBC Auto (Bl d)on 12-18-2023 Eosinophils/100 WBC (Bld) 1.8 % 0.9-7.0 [facility] Erythrocyte distribution wid th Auto (RBC) [Ratio]on 12-18-2023 Erythrocyte distribution width (RBC) [Ratio] 12.2 % 11.0-15.0 [facility] Hematocrit Auto (Bld) [Volum e fraction]on 12-18-2023 Hematocrit (Bld) [Volume fraction] 44.2 % 42.0-54.0 [facility] Hemoglobin [Mass/volume] in Bloodon 12-18-2023 Hemoglobin (Bld) [Mass/Vol] 14.7 g/dL 14.0-18.0 [facility] Lucien 12-18-2023 L Specimen: [id number] Received: 12/22/23-1202 Status: MENDEZ Stoddard Num: [id number] Spec Type: Impression Subm Dr: Skylar Ghotra MD Tissues: PATHPER Procedures: PATHREVIEW Age/ Patient Sex Location Account Attending Physician Kenrick Zaragoza 33/M LABELL [id number] Skylar Ghotra MD SPEC NUM: [id number] RECD: 12/22/23 STATUS: MENDEZ BROWN NUM: [id number] KRISTYN: 12/18/[address] [facility] [address]: Skylar Ghotra MD ENTERED: 12/22/[address] [facility] DR: Shantelle,Lab SPEC TYPE: Impression DEPT: ELODIA James ENTERED BY: [id number] RECV BY: [id number] ORDERED: PATHREVIEW ORDERED: PATHREVIEW Pathologist Review Abnormal CBC for peripheral blood smear review: -No obvious abnormality of the hematologic indices except slightly increased percentage and absolute number of immature granulocytes -No obvious morphological abnormality of the leukocyte population, except occasional reactive lymphocytes, rare precursor granulocytes, and mild toxic change of the neutrophils displaying occasional Dohle bodies -No obvious morphological abnormality of the platelet population (occasional large platelets and at least 1 giant platelet are noticed) Comment: -The cause of rare immature granulocytes in peripheral blood of the middle age adult male patient in this case is not clear, but may suggest recovering phase of the recent tissue injury, systemic inflammation, or infection, also is supported by mild toxic change of the neutrophils with occasional Dohle bodies. There is no leukocytosis or neutrophilia to suspect chronic myeloproliferative disorder. The rare immature granulocytes also is not compatible with an abnormal bulge of the intermediate stage of the immature granulocytes per one of the feature of CML. Clinical correlations are suggested CPT: 88330 -------- -------- Specimen: [id number] Received: 12/22/23-1203 Status: MENDEZ Brown Num: [id number] Spec Type: Impression Subm Dr: Skylar Ghotra MD Tissues: PATHPER Procedures: PATHREVIEW -------- Patient: Kenrick Zaragoza [id number] (Continued) -------- Signed (signature on file) Gogo Hartmann MD 12/24/23 1846 Normal [facility] - Hematology and Cell countson 12-18-2023 Immature granulocytes/100 WBC (Bld) 2.2 % 0.0-0.5 [facility] Leukocytes [#/volume] correc ladi for nucleated erythrocytes in Blood by Automated counon 12-18-2023 WBC corrected for nucl RBC Auto (Bld) [#/Vol] 8.9 10 3/uL 4.0-11.0 [facility] Lymphocytes Auto (Bld) [#/Vo l]on 12-18-2023 Lymphocytes (Bld) [#/Vol] 2.1 10 3/uL 1.2-3.8 [facility] Lymphocytes/100 WBC Auto (Bl d)on 12-18-2023 Lymphocytes/100 WBC (Bld) 23.9 % 20.5-60.0 [facility] MCH Auto (RBC) [Entitic mass ]on 12-18-2023 MCH (RBC) [Entitic mass] 28.7 pg 25.9-34.0 [facility] MCHC Auto (RBC) [Mass/Vol]on 12-18-2023 MCHC (RBC) [Mass/Vol] 33.3 g/dL 29.9-35.2 [facility] MCV Auto (RBC) [Entitic vol] on 12-18-2023 MCV (RBC) [Entitic vol] 86.2 fL 80.0-94.0 [facility] Monocytes Auto (Bld) [#/Vol] on 12-18-2023 Monocytes (Bld) [#/Vol] 0.6 10 3/uL 0.3-0.8 [facility] Monocytes/100 WBC Auto (Bld) on 12-18-2023 Monocytes/100 WBC (Bld) 6.3 % 1.7-12.0 [facility] Neutrophils Auto (Bld) [#/Vo l]on 12-18-2023 Neutrophils (Bld) [#/Vol] 5.8 10 3/uL 1.4-6.5 [facility] Neutrophils/100 WBC Auto (Bl d)on 12-18-2023 Neutrophils/100 WBC (Bld) 65.0 % 43.0-75.0 [facility] No Panel Informationon 12-17 Eosinophils # (Auto) 0.2 10 3/uL 0.0-0.7 [facility] Immature Granulocyte # (Auto) 0.20 10 3/uL 0.00-0.03 [facility] Platelet mean volume Auto (B ld) [Entitic vol]on 12-18-2023 Platelet mean volume (Bld) [Entitic vol] 12.2 fL 9.5-13.5 [facility] Platelets Auto (Bld) [#/Vol] on 12-18-2023 Platelets (Bld) [#/Vol] 227 10 3/uL 150-450 [facility] RBC Auto (Bld) [#/Vol]on RBC (Bld) [#/Vol] 5.13 10 6/uL 4.70-6.10 [facility] Albumin [Mass/volume] in Ser um or Plasmaon 11-17-2023 Albumin [Mass/Vol] 3.8 g/dL 2.9-4.4 [facility] Basophils Auto (Bld) [#/Vol] on 11-17-2023 Basophils (Bld) [#/Vol] 0.1 10 3/uL 0.0-0.1 [facility] Basophils/100 WBC Auto (Bld) on 11-17-2023 Basophils/100 WBC (Bld) 0.8 % 0.2-2.0 [facility] Eosinophils/100 WBC Auto (Bl d)on 11-17-2023 Eosinophils/100 WBC (Bld) 2.1 % 0.9-7.0 [facility] Erythrocyte distribution wid th Auto (RBC) [Ratio]on 11-17-2023 Erythrocyte distribution width (RBC) [Ratio] 12.6 % 11.0-15.0 [facility] Hematocrit Auto (Bld) [Volum e fraction]on 11-17-2023 Hematocrit (Bld) [Volume fraction] 43.8 % 42.0-54.0 [facility] Hemoglobin [Mass/volume] in Bloodon 11-17-2023 Hemoglobin (Bld) [Mass/Vol] 14.8 g/dL 14.0-18.0 [facility] IgA [Mass/volume] in Serum o r Plasmaon 11-17-2023 IgA [Mass/Vol] 164 mg/dL 90-386 [facility] IgG [Mass/volume] in Serum o r Plasmaon 11-17-2023 IgG [Mass/Vol] 1002 mg/dL 603-1613 [facility] IgM [Mass/volume] in Serum o r Plasmaon 11-17-2023 IgM [Mass/Vol] 99 mg/dL 20-172 [facility] Laboratory - Chemistry and C hemistry - challengeon 11-17-2023 LDH [Catalytic activity/Vol] 133 U/L 85-227 [facility] Laboratory - Hematology and Cell countson 11-17-2023 ESR (Bld) [Velocity] 42 mm/h <=15 [facility] Immature granulocytes/100 WBC (Bld) 1.9 % 0.0-0.5 [facility] Leukocytes [#/volume] correc ladi for nucleated erythrocytes in Blood by Automated counon 11-17-2023 WBC corrected for nucl RBC Auto (Bld) [#/Vol] 8.6 10 3/uL 4.0-11.0 [facility] Lymphocytes Auto (Bld) [#/Vo l]on 11-17-2023 Lymphocytes (Bld) [#/Vol] 2.1 10 3/uL 1.2-3.8 [facility] Lymphocytes/100 WBC Auto (Bl d)on 11-17-2023 Lymphocytes/100 WBC (Bld) 24.2 % 20.5-60.0 [facility] MCH Auto (RBC) [Entitic mass ]on 11-17-2023 MCH (RBC) [Entitic mass] 29.4 pg 25.9-34.0 [facility] MCHC Auto (RBC) [Mass/Vol]on 11-17-2023 MCHC (RBC) [Mass/Vol] 33.8 g/dL 29.9-35.2 [facility] MCV Auto (RBC) [Entitic vol] on 11-17-2023 MCV (RBC) [Entitic vol] 87.1 fL 80.0-94.0 [facility] Monocytes Auto (Bld) [#/Vol] on 11-17-2023 Monocytes (Bld) [#/Vol] 0.5 10 3/uL 0.3-0.8 [facility] Monocytes/100 WBC Auto (Bld) on 11-17-2023 Monocytes/100 WBC (Bld) 5.6 % 1.7-12.0 [facility] Neutrophils Auto (Bld) [#/Vo l]on 11-17-2023 Neutrophils (Bld) [#/Vol] 5.7 10 3/uL 1.4-6.5 [facility] Neutrophils/100 WBC Auto (Bl d)on 11-17-2023 Neutrophils/100 WBC (Bld) 65.4 % 43.0-75.0 [facility] No Panel Informationon 11-16 C-Reactive Protein, Quantitative 0.51 mg/dL <=0.50 [facility] Eosinophils # (Auto) 0.2 10 3/uL 0.0-0.7 [facility] Immature Granulocyte # (Auto) 0.16 10 3/uL 0.00-0.03 [facility] Protein Electrophoresis M-Fabrizio Not Observed g/dL Not Observed [facility] Protein Electrophoresis Note Comment . [facility] Comment on above: Protein electrophore sis scan will follow via computer,mail, or property claim rep delivery.Performed at: [address] [id number] Director: Jorge Crane PhD, Phone: [phone] Platelet mean volume Auto (B ld) [Entitic vol]on 11-17-2023 Platelet mean volume (Bld) [Entitic vol] 11.9 fL 9.5-13.5 [facility] Platelets Auto (Bld) [#/Vol] on 11-17-2023 Platelets (Bld) [#/Vol] 239 10 3/uL 150-450 [facility] Protein [Mass/volume] in Ser um or Plasmaon 11-17-2023 Protein [Mass/Vol] 6.8 g/dL 6.0-8.5 [facility] RBC Auto (Bld) [#/Vol]on RBC (Bld) [#/Vol] 5.03 10 6/uL 4.70-6.10 [facility] Serum globulin measurement ( mass/volume)on 11-17-2023 Globulin (S) [Mass/Vol] 3.0 g/dL 2.2-3.9 [facility] Serum or plasma albumin/glob ulin mass ratioon 11-17-2023 Albumin/Globulin [Mass ratio] 1.3 {ratio} 0.7-1.7 [facility] Serum or plasma alpha 1 glob ulin measurement by electrophoresis (mass/volume)on 11-17-2023 Alpha 1 globulin Elph [Mass/Vol] 0.2 g/dL 0.0-0.4 [facility] Serum or plasma alpha 2 glob ulin measurement by electrophoresis (mass/volume)on 11-17-2023 Alpha 2 globulin Elph [Mass/Vol] 0.9 g/dL 0.4-1.0 [facility] Serum or plasma beta globuli n measurement by electrophoresis (mass/volume)on 11-17-2023 Beta globulin Elph [Mass/Vol] 1.0 g/dL 0.7-1.3 [facility] Serum or plasma gamma globul in measurement by electrophoresis (mass/volume)on 11-17-2023 Gamma globulin Elph [Mass/Vol] 0.9 g/dL 0.4-1.8 [facility] Serum or plasma immunoelectr ophoresis interpretationon 11-17-2023 Interpretation IEP [Interp] Comment . [facility] Comment on above: No monoclonality det ected. Basophils Auto (Bld) [#/Vol] on 10-26-2023 Basophils (Bld) [#/Vol] 0.1 10 3/uL 0.0-0.1 [facility] Basophils/100 WBC Auto (Bld) on 10-26-2023 Basophils/100 WBC (Bld) 0.6 % 0.2-2.0 [facility] Eosinophils/100 WBC Auto (Bl d)on 10-26-2023 Eosinophils/100 WBC (Bld) 1.7 % 0.9-7.0 [facility] Erythrocyte distribution wid th Auto (RBC) [Ratio]on 10-26-2023 Erythrocyte distribution width (RBC) [Ratio] 12.7 % 11.0-15.0 [facility] Hematocrit Auto (Bld) [Volum e fraction]on 10-26-2023 Hematocrit (Bld) [Volume fraction] 40.2 % 42.0-54.0 [facility] Hemoglobin [Mass/volume] in Bloodon 10-26-2023 Hemoglobin (Bld) [Mass/Vol] 13.5 g/dL 14.0-18.0 [facility] Lucien 10-26-2023 L Specimen: Received: 10/28/23 Status: MENDEZ Brown Num: [id number] Spec Type: Impression Subm Dr: Tonio Kelly, Tissues: PATHPER Procedures: PATHREVIEW Age/ Patient Sex Location Account Attending Physician Kenrick Zaragoza 33/M LABELL [id number] NON STAFF SPEC NUM: BP RECD: 10/28/23 STATUS: MENDEZ BROWN NUM: [id number] KRSITYN: 04/29/24-[address]: Tonio Kelly DO ENTERED: 10/28/[address] [facility] DR: Shantelle,Lab SPEC TYPE: Impression DEPT: ELODIA James ENTERED BY: [id number] RECV BY: [id number] ORDERED: PATHREVIEW ORDERED: PATHREVIEW Pathologist Review Mild normocytic anemia. Occasional atypical lymphocytes are noted. Reactive versus neoplastic. [id number] -------- -------- Specimen: [id number] Received: 10/28/23 Status: MENDEZ Yobany Num: [id number] Spec Type: Impression Subm Dr: Tonio Kelly DO Tissues: PATHPER Procedures: PATHREVIEW -------- Patient: Kenrick Zaragoza [id number] (Continued) -------- Signed (signature on file) Jesus Mack MD 10/28/23 1534 Normal [facility] - Hematology and Cell countson 10-26-2023 Immature granulocytes/100 WBC (Bld) 2.2 % 0.0-0.5 [facility] Leukocytes [#/volume] correc ladi for nucleated erythrocytes in Blood by Automated counon 10-26-2023 WBC corrected for nucl RBC Auto (Bld) [#/Vol] 8.2 10 3/uL 4.0-11.0 [facility] Lymphocytes Auto (Bld) [#/Vo l]on 10-26-2023 Lymphocytes (Bld) [#/Vol] 2.2 10 3/uL 1.2-3.8 [facility] Lymphocytes/100 WBC Auto (Bl d)on 10-26-2023 Lymphocytes/100 WBC (Bld) 27.0 % 20.5-60.0 [facility] MCH Auto (RBC) [Entitic mass ]on 10-26-2023 MCH (RBC) [Entitic mass] 28.8 pg 25.9-34.0 [facility] MCHC Auto (RBC) [Mass/Vol]on 10-26-2023 MCHC (RBC) [Mass/Vol] 33.6 g/dL 29.9-35.2 [facility] MCV Auto (RBC) [Entitic vol] on 10-26-2023 MCV (RBC) [Entitic vol] 85.7 fL 80.0-94.0 [facility] Monocytes Auto (Bld) [#/Vol] on 10-26-2023 Monocytes (Bld) [#/Vol] 0.6 10 3/uL 0.3-0.8 [facility] Monocytes/100 WBC Auto (Bld) on 10-26-2023 Monocytes/100 WBC (Bld) 6.8 % 1.7-12.0 [facility] Neutrophils Auto (Bld) [#/Vo l]on 10-26-2023 Neutrophils (Bld) [#/Vol] 5.1 10 3/uL 1.4-6.5 [facility] Neutrophils/100 WBC Auto (Bl d)on 10-26-2023 Neutrophils/100 WBC (Bld) 61.7 % 43.0-75.0 [facility] No Panel Informationon 10-25 Add Manual Differential See comment [facility] Comment on above: SEE SCANNED REPORT Eosinophils # (Auto) 0.1 10 3/uL 0.0-0.7 [facility] Immature Granulocyte # (Auto) 0.18 10 3/uL 0.00-0.03 [facility] Platelet mean volume Auto (B ld) [Entitic vol]on 10-26-2023 Platelet mean volume (Bld) [Entitic vol] 11.6 fL 9.5-13.5 [facility] Platelets Auto (Bld) [#/Vol] on 10-26-2023 Platelets (Bld) [#/Vol] 230 10 3/uL 150-450 [facility] RBC Auto (Bld) [#/Vol]on RBC (Bld) [#/Vol] 4.69 10 6/uL 4.70-6.10 [facility] Basophils Auto (Bld) [#/Vol] on 10-24-2023 Basophils (Bld) [#/Vol] 0.1 10 3/uL 0.0-0.1 [facility] Basophils/100 WBC Auto (Bld) on 10-24-2023 Basophils/100 WBC (Bld) 0.8 % 0.2-2.0 [facility] Cholesterol in LDL Calc [Mas s/Vol]on 10-24-2023 Cholesterol in LDL [Mass/Vol] 99.4 mg/dL [facility] Comment on above: <100 mg/dl [id number] 0-129 mg/dl NEAR OR ABOVE [id number] mg/dl BORDERLINE [id number] mg/dl HIGH>190 mg/dl VERY HIGH Cholesterol in VLDL Calc [Ma ss/Vol]on 10-24-2023 Cholesterol in VLDL [Mass/Vol] 21.6 mg/dL [facility] Eosinophils/100 WBC Auto (Bl d)on 10-24-2023 Eosinophils/100 WBC (Bld) 2.2 % 0.9-7.0 [facility] Erythrocyte distribution wid th Auto (RBC) [Ratio]on 10-24-2023 Erythrocyte distribution width (RBC) [Ratio] 12.5 % 11.0-15.0 [facility] Estimated glomerular filtrat ion rate (GFR) non- Americanon 10-24-2023 GFR/1.73 sq M.predicted among non-blacks MDRD (S/P/Bld) [Vol rate/Area] mL/min/{1.73_m2} >=60 [facility] Glucose mean value [Mass/vol ume] in Blood Estimated from glycated hemoglobinon 10-24-2023 Average glucose Estimated from glycated hemoglobin (Bld) [Mass/Vol] 140 mg/dL [facility] Hematocrit Auto (Bld) [Volum e fraction]on 10-24-2023 Hematocrit (Bld) [Volume fraction] 42.6 % 42.0-54.0 [facility] Hemoglobin [Mass/volume] in Bloodon 10-24-2023 Hemoglobin (Bld) [Mass/Vol] 14.3 g/dL 14.0-18.0 [facility] Laboratory - Chemistry and C hemistry - challengeon 10-24-2023 Calcium [Mass/Vol] 9.2 mg/dL 8.5-10.1 [facility] Chloride [Moles/Vol] 104 mmol/L 98-107 [facility] Cholesterol [Mass/Vol] 163 mg/dL <=200 [facility] Cholesterol in HDL [Mass/Vol] 42 mg/dL 40-60 [facility] Comment on above: > or =60 mg/dl - LOW CARDIOVASCULAR RISK<40 mg/dl - HIGH CARDIOVASCULAR RISK CO2 [Moles/Vol] 25.6 mmol/L 21.0-32.[address] [facility] Creatinine [Mass/Vol] 0.65 mg/dL 0.70-1.30 [facility] GFR/1.73 sq M.predicted MDRD (S/P/Bld) [Vol rate/Area] mL/min/{1.73_m2} >=60 [facility] Glucose [Mass/Vol] 143 mg/dL 74-106 [facility] Potassium [Moles/Vol] 4.0 mmol/L 3.5-5.1 [facility] Sodium [Moles/Vol] 140 mmol/L 136-145 [facility] Triglyceride [Mass/Vol] 108 mg/dL <=150 [facility] Urea nitrogen [Mass/Vol] 9.0 mg/dL 7.0-18.0 [facility] Urea nitrogen/Creatinine [Mass ratio] 13.8 mg/mg [facility] Laboratory - Hematology and Cell countson 10-24-2023 HbA1c (Bld) [Mass fraction] 6.5 % 4.5-6.2 [facility] Comment on above: ADA RECOMMENDED LIMI T 4.0 - 6.0ADA THERAPEUTIC TARGET < 7.0ACTION SUGGESTED> 7.0 Immature granulocytes/100 WBC (Bld) 3.9 % 0.0-0.5 [facility] Leukocytes [#/volume] correc ladi for nucleated erythrocytes in Blood by Automated counon 10-24-2023 WBC corrected for nucl RBC Auto (Bld) [#/Vol] 7.1 10 3/uL 4.0-11.0 [facility] Lymphocytes Auto (Bld) [#/Vo l]on 10-24-2023 Lymphocytes (Bld) [#/Vol] 1.7 10 3/uL 1.2-3.8 [facility] Lymphocytes/100 WBC Auto (Bl d)on 10-24-2023 Lymphocytes/100 WBC (Bld) 23.2 % 20.5-60.0 [facility] MCH Auto (RBC) [Entitic mass ]on 10-24-2023 MCH (RBC) [Entitic mass] 28.8 pg 25.9-34.0 [facility] MCHC Auto (RBC) [Mass/Vol]on 10-24-2023 MCHC (RBC) [Mass/Vol] 33.6 g/dL 29.9-35.2 [facility] MCV Auto (RBC) [Entitic vol] on 10-24-2023 MCV (RBC) [Entitic vol] 85.7 fL 80.0-94.0 [facility] Monocytes Auto (Bld) [#/Vol] on 10-24-2023 Monocytes (Bld) [#/Vol] 0.6 10 3/uL 0.3-0.8 [facility] Monocytes/100 WBC Auto (Bld) on 10-24-2023 Monocytes/100 WBC (Bld) 7.7 % 1.7-12.0 [facility] Neutrophils Auto (Bld) [#/Vo l]on 10-24-2023 Neutrophils (Bld) [#/Vol] 4.4 10 3/uL 1.4-6.5 [facility] Neutrophils/100 WBC Auto (Bl d)on 10-24-2023 Neutrophils/100 WBC (Bld) 62.2 % 43.0-75.0 [facility] No Panel Informationon 10-23 Eosinophils # (Auto) 0.2 10 3/uL 0.0-0.7 [facility] Immature Granulocyte # (Auto) 0.28 10 3/uL 0.00-0.03 [facility] Nucleated Red Blood Cells/100 WBC 0 [facility] Platelet mean volume Auto (B ld) [Entitic vol]on 10-24-2023 Platelet mean volume (Bld) [Entitic vol] 11.3 fL 9.5-13.5 [facility] Platelets Auto (Bld) [#/Vol] on 10-24-2023 Platelets (Bld) [#/Vol] 214 10 3/uL 150-450 [facility] RBC Auto (Bld) [#/Vol]on RBC (Bld) [#/Vol] 4.97 10 6/uL 4.70-6.10 [facility] Serum or plasma anion gap de terminationon 10-24-2023 Anion gap [Moles/Vol] 14.4 mmol[facility] Serum or plasma total choles terol/high density lipoprotein (HDL) cholesterol mass reji 10-24-2023 Cholesterol.total/Choles terol in HDL [Mass ratio] 3.9 {ratio} [facility] Comment on above: 3.3 - 4.4 LOW RISK4. 4 - 7.1 AVERAGE RISK7.1 - 11.0 MODERATE RISK>11.0 HIGH RISK CBC AUTO DIFFon 05-08-2021 BASO # 0.1 103/ul Normal 0.0-0.1 [facility] Comment on above: Performed By: #### D ATCBC #### [facility] [address] [place] [address] Dr. Edinson Hartmann Basophils/100 WBC (Bld) 1.6 % Normal 0.2-2.0 [facility] Comment on above: Performed By: #### D ATCBC #### [facility] [address] [place] [address] Dr. Edinson Hartmann EO # 0.2 103/ul Normal 0.0-0.7 [facility] Comment on above: Performed By: #### D ATCBC #### [facility] [address] [place] [address] Dr. Edinson Hartmann Eosinophils/100 WBC (Bld) 2.0 % Normal 0.9-7.0 [facility] Comment on above: Performed By: #### D ATCBC #### [facility] [address] [place] [address] Dr. Edinson Hartmann Erythrocyte distribution width (RBC) [Ratio] 12.7 % Normal 11.0-15.0 [facility] Comment on above: Performed By: #### D ATCBC #### [facility] [address] [place] [address] Dr. Edinson Hartmann Hematocrit (Bld) [Volume fraction] 44.1 % Normal 42.0-54.0 [facility] Comment on above: Performed By: #### D ATCBC #### [facility] [address] [place] [address] Dr. Edinson Hartmann Hemoglobin (Bld) [Mass/Vol] 14.1 g/dL Normal 14.0-18.0 [facility] Comment on above: Performed By: #### D ATCBC #### [facility] [address] [place] [address] Dr. Edinson Hartmann IG # 0.52 10e3/ul Critically high 0.00-0.03 [facility] Comment on above: Performed By: #### D ATCBC #### [facility] [address] [place] [address] Dr. Edinson Hartmann IG % 6.9 % Critically high 0.0-0.5 [facility] Comment on above: Performed By: #### D ATCBC #### [facility] [address] [place] [address] Dr. Edinson Hartmann LYMPH # 1.5 103/ul Normal 1.2-3.8 [facility] Comment on above: Performed By: #### D ATCBC #### [facility] [address] [place] [address] Dr. Edinson Hartmann Lymphocytes/100 WBC (Bld) 20.5 % Normal 20.5-60.0 [facility] Comment on above: Performed By: #### D ATCBC #### [facility] [address] [place] [address] Dr. Edinson Hartmann MCH (RBC) [Entitic mass] 27.9 pg Normal 25.9-34.0 [facility] Comment on above: Performed By: #### D ATCBC #### [facility] [address] [place] [address] Dr. Edinson Hartmann MCHC (RBC) [Mass/Vol] 32.0 g/dL Normal 29.9-35.2 [facility] Comment on above: Performed By: #### D ATCBC #### [facility] [address] [place] [address] Dr. Edinson Hartmann MCV (RBC) [Entitic vol] 87.2 fL Normal 80.0-94.0 [facility] Comment on above: Performed By: #### D ATCBC #### [facility] [address] [place] [address] Dr. Edinson Hartmann MONO # 0.5 103/ul Normal 0.3-0.8 [facility] Comment on above: Performed By: #### D ATCBC #### [facility] [address] [place] [address] Dr. Edinson Hartmann Monocytes/100 WBC (Bld) 7.2 % Normal 1.7-12.0 [facility] Comment on above: Performed By: #### D ATCBC #### [facility] [address] [place] [address] Dr. Edinson Hartmann NEUT # 4.7 103/ul Normal 1.4-6.5 [facility] Comment on above: Performed By: #### D ATCBC #### [facility] [address] [place] [address] Dr. Edinson Hartmann Neutrophils/100 WBC (Bld) 61.8 % Normal 43.0-75.0 [facility] Comment on above: Performed By: #### D ATCBC #### [facility] [address] [place] [address] Dr. Edinson Hartmann Platelet mean volume (Bld) [Entitic vol] 12.3 fL Normal 9.5-13.5 [facility] Comment on above: Performed By: #### D ATCBC #### [facility] [address] [place] [address] Dr. Edinson Hartmann PLT 183 103/ul Normal 150-450 [facility] Comment on above: Performed By: #### D ATCBC #### [facility] [address] [place] [address] Dr. Edinson Hartmann RBC 5.06 106/ul Normal 4.70-6.10 [facility] Comment on above: Performed By: #### D ATCBC #### [facility] [address] [place] [address] Dr. Edinson Hartmann WBC 7.5 103/ul Normal 4.0-11.0 [facility] Comment on above: Performed By: #### D ATCBC #### [facility] [address] [place] [address] Dr. Edinson Hartmann LESLY- BMP WITH LIPIDon 2020 Anion gap [Moles/Vol] 12.6 mmol/L Normal [facility] Comment on above: Performed By: #### D ATBMP #### [facility] [address] [place] [address] Dr. Edinson Hartmann Calcium [Mass/Vol] 9.0 mg/dL Normal 8.4-10.2 [facility] Comment on above: Performed By: #### D ATBMP #### [facility] [address] [address] [address] Edinson Hartmann Chloride [Moles/Vol] 102 mmol/L Normal 98-107 [facility] Comment on above: Performed By: #### D ATBMP #### [facility] [address] [address] [address] Edinson Hartmann Cholesterol [Mass/Vol] 163 mg/dL Normal <=200 [facility] Comment on above: Performed By: #### D ATBMP #### [facility] [address] [address] [address] Edinson Hartmann Cholesterol in HDL [Mass/Vol] 44 mg/dL Normal [facility] Comment on above: Performed By: #### D ATBMP #### [facility] [address] [place] [address] Dr. Edinson Hartmann Cholesterol in LDL [Mass/Vol] 97.4 mg/dL Normal [facility] Comment on above: Performed By: #### D ATBMP #### [facility] [address] [address] [address] Edinson Hartmann CO2 [Moles/Vol] 26.9 mmol/L Normal 22.0-30.0 [facility] Comment on above: Performed By: #### D ATBMP #### [facility] [address] [place] [address] Dr. Edinson Hartmann Creatinine [Mass/Vol] 0.59 mg/dL Critically low 0.66-1.25 [facility] Comment on above: Performed By: #### D ATBMP #### [facility] [address] [place] [address] Dr. Edinson Hartmann EGFR-AF CITIZEN [place] >60 Normal >=60 [facility] Comment on above: Performed By: #### D ATBMP #### [facility] [address] [place] [address] Dr. Edinson Hartmann EGFR-NON AF CITIZEN OF [place] >60 Normal >=60 [facility] Comment on above: Performed By: #### D ATBMP #### [facility] [address] [place] [address] Dr. Edinson Hartmann Glucose [Mass/Vol] 191 mg/dL Critically high 74-106 [facility] Comment on above: Performed By: #### D ATBMP #### [facility] [address] [address] [address] Edinson Hartmann HDL NORMAL > or = 60 mg/dl - LO W CARDIOVASCULAR RISK <40 mg/dl - HIGH CARDIOVASCULAR RISK Normal [facility] Comment on above: Performed By: #### D ATBMP #### [facility] [address] [address] [address] Edinson Hartmann LDL CALC NORMAL SEE BELOW Normal [facility] Comment on above: Result Comment: <100 mg/dl OPTIMAL 100 - 129 mg/dl NEAR OR ABOVE OPTIMAL 130 - 159 mg/dl BORDERLINE HIGH 160 - 189 mg/dl HIGH >190 mg/dl VERY HIGH Performed By: #### D ATBMP #### [facility] [address] [address] [address] Edisnon Hartmann Potassium [Moles/Vol] 4.5 mmol/L Normal 3.4-5.0 [facility] Comment on above: Performed By: #### D ATBMP #### [facility] [address] [address] [address] Edinson Hartmann Sodium [Moles/Vol] 137 mmol/L Normal 137-145 [facility] Comment on above: Performed By: #### D ATBMP #### [facility] [address] [address] [address] Edinson Hartmann Triglyceride [Mass/Vol] 108 mg/dL Normal <=150 [facility] Comment on above: Performed By: #### D ATBMP #### [facility] [address] [address] [address] Edinson Hartmann Urea nitrogen [Mass/Vol] 17.0 mg/dL Normal 9.0-20.0 [facility] Comment on above: Performed By: #### D ATBMP #### [facility] [address] [address] [address] Edinson Hartmann Urea nitrogen/Creatinine [Mass ratio] 28.8 mg/mg Normal [facility] Comment on above: Performed By: #### D ATBMP #### [facility] [address] [address] [address] Edinson Hartmann VLDL CALC 21.6 mg/dL Normal [facility] Comment on above: Performed By: #### D ATBMP #### [facility] [address] [address] [address] Edinson Hartmann GLYCOHEMOGLOBIN A1Con 2020 ADA RECOMMENDATION ADA THERAPEUTIC TARGET 6.0 - 7.0 ACTION SUGGESTED > 7.0 Normal [facility] Comment on above: Performed By: #### D ATA1C #### [facility] [address] [address] [address] Edinson Hartmann Glucose [Mass/Vol] 240 mg/dL Normal [facility] Comment on above: Performed By: #### D ATA1C #### [facility] [address] [place] [address] Dr. Edinson Hartmann HbA1c (Bld) [Mass fraction] 10.0 % Critically high <=6.0 [facility] Comment on above: Performed By: #### D ATA1C #### [facility] [address] [address] [address] Edinson Hartmann Covid-19 PCR ([facility])on 03-30 SARS-CoV-2 (COVID-19) RNA BRYANT+probe Ql (Unsp spec) Not detected Normal NOT DETECTED [facility] Comment on above: Result Comment: This test is not yet approved or cleared by the [place] FDA. When there are no FDA-approved or cleared tests available, and other criteria are met, FDA can make tests available under an emergency access mechanism called an Emergency Use Authorization (EUA). The EUA for this test is supported by the [place] of Health and Human Service's (HHS's) declaration [...] SARS-CoV-2. Performed By: #### C VDTB #### [facility] [address] [place], [place] [address] Dr. Edinson Hartmann Covid-19 PCR ([facility])on 03-29 SARS-CoV-2 (COVID-19) RNA BRYANT+probe Ql (Unsp spec) Detected Critically abnormal NOT DETECTED [facility] Comment on above: Result Comment: This test is not yet approved or cleared by the [place] FDA. When there are no FDA-approved or cleared tests available, and other criteria are met, FDA can make tests available under an emergency access mechanism called an Emergency Use Authorization (EUA). The EUA for this test is supported by the [place] of Health and Human Service's (HHS's) declaration [...] used). Performed By: #### C VDTB #### [facility] [address] [place], [place] [address] Dr. Edinson Hartmann Vital Signs Date Time Vital Sign Value Performing Clinician Facility 10-26-2023 09:[id number] Body height 190.5 cm [facility] 10-26-2023 09:07-0400 Body mass index (BMI) [Ratio] 50.8 kg/m2 [facility] 10-26-2023 09:[id number] Body weight 184.66 kg [facility] 10-26-2023 09:07-0400 Diastolic blood pressure 77 mm[Hg] [facility] 10-26-2023 09:07-0400 Heart rate 80 /min [facility] 10-26-2023 09:07-0400 Respiratory rate 12 /min [facility] 10-26-2023 09:07-0400 Systolic blood pressure 126 mm[Hg] [facility] 03-30-2023 09:45-0400 Body height 190.5 cm Tonio Ball Other [facility] 03-30-2023 09:45-0400 Body mass index (BMI) [Ratio] 49.39 kg/m2 Tonio Ball Other [facility] 03-30-2023 09:45-0400 Body weight 179.26 kg Tonio Ball Other [facility] 03-30-2023 09:45-0400 Diastolic blood pressure 96 mm[Hg] Tonio Ball Other [facility] 03-30-2023 09:45-0400 Respiratory rate 12 /min Tonio Ball Other [facility] Other 03-30-2023 09:45-0400 Systolic blood pressure 141 mm[Hg] Tonio Ball Other [facility] Other Encounters Encounter Date Encounter Type Care Provider Facility Start: 12-18-2023 Non-patient / Non-visit [facility] Work Phone: Start: 12-18-2023 End: 12-18-2023 ambulatory Skylar Brandin [facility] Work Phone: Start: 12-18-2023 End: 12-18-2023 Departed Referred [facility] Start: 11-17-2023 Non-patient / Non-visit [facility] Work Phone: Start: 10-26-2023 End: 10-26-2023 Departed Referred [facility] Start: 10-26-2023 End: 10-26-2023 ambulatory NON STAFF [facility] Work Phone: Start: 10-26-2023 End: 10-26-2023 Patient encounter procedure [facility] Work Phone: Start: 10-24-2023 Non-patient / Non-visit [facility] [facility] Work Phone: Start: 10-24-2023 End: 10-24-2023 ambulatory [facility] Work Phone: Start: 10-24-2023 End: 10-24-2023 Departed Referred [facility] Start: 10-16-2023 Non-patient / Non-visit [facility] [facility] Work Phone: Start: 04-21-2023 End: 04-21-2023 ambulatory Tonio Kelly Other [facility] Start: 04-21-2023 Telephone encounter Tonio Kelly [facility] Start: 03-30-2023 End: 03-30-2023 ambulatory Tonio Kelly Other [facility] Other Start: 03-30-2023 Encounter for genera l adult medical examination without abnormal findings Tonio Kelly [facility] Start: 03-30-2023 Periodic preventive med est patient 18-39 yrs Tonio Kelly [facility] Start: 11-29-[address] TONIO KELLY Facili ty:[facility] Start: 05-08-2021 End: 05-20-[address] TONIO KELLY Facility:[facility] Start: 04-18-2021 End: 04-18-[address] TONIO KELLY Facility:[facility] Start: 04-09-2021 End: 04-09-[address] TONIO KELLY Facility:[facility] Start: 04-08-2021 ambulatory SIRENA GUADARRAMA [facility] Plan of Treatment Date Care Activity Detail Author [facility] Payers Date Payer Category Payer Unknown [id number] 1990 Unknown [id number] [id number] [id number] 1990 Unknown [id number] 2.16.84 [id number] 1992 Unknown [id number] 2.16.84 [id number] 1992 Unknown [id number] 2.16.84 [id number] 1957 Self-pay 1957 Unknown [id number] Unknown [id number] 2.16.84 [id number] Unknown [id number] 2.16.8 [id number] Unknown [id number] 2.16.8 [id number] Social History Date Type Detail Facility Sex Assigned At [facility] Other Start: 1990 Sex Assigned At Male F [facility] Medical Equipment Procedure Code Equipment Code Equipment Origin al Text Equipment Identifier Dates Start: 04-05-2021 Evaluation note 04-21-2023 Note Date & Type Note Facility 04-21-2023 Evaluation note Encounter Date Diagnosis Assessment Notes Mar, Type 2 diabetes mellitus with hyperglycemia , without long-term current use of insulin (ICD-10 - E11.65) [facility] Other Evaluation note 03-30-2023 Note Date & [...] and feet daily for blisters and ulcerations. [facility] Other Evaluation note Note Date & Type Note Facility Evaluation note Diagnosis Onset Date Chronic venous insufficiency acute Left-shifted white blood cells acute Primary hypertension acute Type 2 diabetes mellitus with hyperglycemia acute [facility] Work Phone: History general Narrative - Reported Note Date & Type Note Facility History general Narrative - Reported Type Medical History Mixed hyperlipidemia Medical History Type 2 diabetes jessica itus with hyperglycemia Medical History Venous insufficiency (chronic) (peripheral) Medical History Cellulitis of right lower leg Surgical History tonsillectomy and adenoidectomy Hospitalization History see surgical hx [facility] Other Summary Purpose Family History No Family History Records FoundNo Family History Records FoundNo Family History Records Found Advance Directives No Advanced Directives Records Found Advance Directive Response Recorded Date/ Time Advance Directives No October 15 024 8:58am Chief Complaint and Reason for [...] Chief Complaint Amb Documentation weightloss check Unknown Unknown Reason for Visit Chronic venous insuf ficiency Left-shifted white blood cells Primary hypertension Type 2 diabetes mellitus with hyperglycemia Additional Source Comments (unrecognized sect ion and content) No Status Records FoundNo Status Records FoundNo Status Records Found INFORMATION SOURCE (unrecogn ized section and content) DATE CREATED AUTHOR 04/09/2021 [facility] DATE CREATED AUTHOR AUTHOR'S ORGANIZ ATION 11/30/2021 [facility] DATE CREATED AUTHOR AUTHOR'S ORGANIZ ATION 12/26/2023 [facility] REASON FOR VISIT (unrecogniz ed section and content) [facility]ness[facility] Care Teams (unrecognized sec tion and content) Team Status: Active Member Role Status Dates Tonio Kelly DO Primary Care Provider Active Team Status: Active Member Role Status Dates Tonio Kelly DO Primary Care Provider Active Start: October 16, 2023 SHELLEY Harley Attending Provider Active Start : October 16, 2023 Team Status: Active Member Role Status Dates Tonio Kelly DO Primary Care Provide r, Attending Provider Active Start: October 24, 2023 Team Status: Inactive Member Role Status Dates Tonio Kelly DO Primary Care Provide r, Attending Provider Active Start: October 26, 2023 End: October 26, 2023 Team Status: Inactive Member Role Status Dates NON STAFF Attending Provider Active Start: Ap ril 2023 End: October 24, 2023 Team Status: Inactive Member Role Status Dates NON STAFF Attending Provider Active Start: Ap ril 2023 End: October 26, 2023 Team Status: Active Member Role Status Dates Tonio Kelly DO Primary Care Provider Active Start: November 17, 2023 Skylar Ghotra MD Attending Provider Active St art: November 17, 2023 Team Status: Inactive Member Role Status Dates Skylar Ghotra MD Attending Provider Active St art: December 18, 2023 End: December 18, 2023 Team Status: Active Member Role Status Dates Tonio Kelly DO Primary Care Provider Active Start: December 18, 2023 Skylar Ghotra MD Attending Provider Active art: December 18, 2023 Goals (unrecognized section and content) Goals [...] BE BASED ON THE PRIMARY CLINICAL RECORDS. [facility] [employer] [facility]. provides no warranty or guarantee of the accuracy or completeness of information in this document.
--- NOTE | 2024-01-23 23:44 | XR_ITS ---
The [address] [address] Patient Name: JUDY MICHELLE MRN: [id number] date: 1990 Sex: M Assigned Patient Location: ER Current Patient Location: ER Accession/Order Number: [id number] Exam Date: 01/23/2024 23:55 Report Date: 01/24/2024 00:48 At the request of: DECLAN WASHINGTON Procedure: XR foot RT min 3V EXAM: XR foot RT min 3V HISTORY: CRUSH INJURY COMPARISON: None. TECHNIQUE: 3 views of right foot FINDINGS: There is a nondisplaced fracture of great toe medial sesamoid bone. There is no dislocation. There is severe hallux valgus.. Hyperflexion of second through fourth digits are noted. XR/XR foot RT min 3V IMPRESSION: nondisplaced fracture of great toe medial sesamoid bone. Electronically authenticated by: MITCHEL SANDOVAL Date: 01/24/2024 00:48
--- NOTE | 2024-01-24 01:07 | ED.LOWEXI1 ---
HPI HPI - Extremity Injury (Lower) General Chief Complaint: Extremity Injury, Lower Stated Complaint: LE INJURY Time Seen by Provider: 01/24/24 01:05 Source: patient Mode of arrival: walk-in Limitations: no limitations History of Present Illness HPI Narrative: cow stepped on his right great toe. Completely avulsed the right great toe nail. Presents with pain of the right great toe. Denies other injury Related Data Allergies Allergy/AdvReac Type Severity Reaction Status Date / Time No Known Drug Allergies Allergy Verified 01/23/24 23:26 Opioid HPI Opioid Management Most Recent Pain and Opioid Data: Last Pain Scale 6 01/24/24 00:37 Review of Systems ROS Status of ROS 10 or more systems reviewed and unremarkable except as noted in history and below Exam Constitutional Vital Signs, click to edit/add: Last Vital Signs Temp 97.8 F 01/23/24 23:26 Pulse 92 H 01/23/24 23:26 Resp 20 01/23/24 23:26 BP 143/90 H 01/23/24 23:26 Pulse Ox 97 01/23/24 23:26 O2 Del Method Room Air 01/23/24 23:26 Common normals: no apparent distress, oriented x3, no limitations, healthy appearing, alert and well nourished [facility] Common normals: normocephalic and head/scalp atraumatic Eye Common normals: PERRL Respiratory Common normals: normal respiratory effort, no retractions, no use of accessory muscles and clear to auscultation bilaterally Cardio Common normals: regular rate, regular rhythm, S1 normal heart sound and S2 normal heart sound GI Common normals: Normal to inspection, nondistended, normoactive bowel sounds present and soft to palpation Extremity Other: right great toe nail complete avulsion. no deformity of the toe. Remaining foot WNL Neuro Common normals: oriented x3, CN's II-XII intact bilaterally, moves all extremities and no focal motor deficits Psych Appearance: grossly normal Course Vital Signs Vital signs: Vital Signs Temperature 97.8 F 01/23/24 23:26 Pulse Rate 92 H 01/23/24 23:26 Respiratory Rate 20 01/23/24 23:26 Blood Pressure 143/90 H 01/23/24 23:26 Pulse Oximetry 97 01/23/24 23:26 Oxygen Delivery Method Room Air 07/27/24 23:26 Temperature 97.8 F 01/23/24 23:26 Pulse Rate 92 H 01/23/24 23:26 Respiratory Rate 20 01/23/24 23:26 Blood Pressure 143/90 H 01/23/24 23:26 Pulse Oximetry 97 01/23/24 23:26 Oxygen Delivery Method Room Air 01/23/24 23:26 MDM - Extremity Injury (Lower) MDM Narrative Medical decision making narrative: right foot stepped on by patient's cow. Xray with fracture of sesamoid bone. Right great toe nail complete avulsion. Wound cleaned and dressed by nursing. Patient discharged with norco and augmentin and is to followup with Podiatry Imaging Data Chest x-ray: Radiologist's impression: ITS Impressions Foot X-Ray 01/23/24 23:44 IMPRESSION: nondisplaced fracture of great toe medial sesamoid bone. Electronically authenticated by: MITCHEL SANDOVAL Date: 01/24/2024 00:48 Discharge Plan Discharge Stand Alone Forms: Portal Instructions Chief Complaint: Extremity Injury, Lower Clinical Impression: Fractured great toe, Nail avulsion of toe Patient Disposition: Home, Self-Care Print Language: Urdu Instructions: Toe Fracture (ED), Nail Avulsion (ED) Additional Instructions: follow up with podiatry Referrals: Tonio Marina DO [Primary Care Provider] - 1 week Discharge Date/Time: 01/24/24 01:37
[2024-01-24] MEDS: AMOXICILLIN/POTASSIUM CLAV 1 TAB TABLET PO (01:21)
[2024-01-24] MEDS: HYDROCODONE/ACET 5-325 MG TABLET 2 TAB PO (01:22)
[2024-01-24 01:37] VITALS: BP 139/97; PULSE 80; O2SAT 100
== END 2024-01-24 01:37 | disposition home or self-care (01) ==
PROVIDERS: Emergency Provider Internal Medicine; PCP Internal Medicine
DX: S92.811A Other fracture of right foot, initial encounter for closed fracture (principal); S91.201A Unspecified open wound of right great toe with damage to nail, initial encounter; W55.22XA Struck by cow, initial encounter
CPT/HCPCS: 73630; 99283

== ENCOUNTER 2024-06-07 11:27 | Outpatient (OUT) | payer OTHER, SELFPAY ==
[2024-06-07 11:45] LABS: Basophils Absolute Auto 0.1 10^3/uL (0.0-0.1); Basophils Percent Auto 0.8 % (0.2-2.0); Eosinophils Absolute Auto 0.1 10^3/uL (0.0-0.7); Eosinophils Percent Auto 1.6 % (0.9-7.0); Hemoglobin 15.4 g/dL (14.0-18.0); Immature Granulocytes Abs Auto 0.27 10^3/uL (0.00-0.03); Lymphocytes Absolute Auto 2.3 10^3/uL (1.2-3.8); Lymphocytes Percent Auto 25.3 % (20.5-60.0); Mean Corpuscular HGB Conc 34.2 g/dL (29.9-35.2); Mean Corpuscular Hemoglobin 29.7 pg (25.9-34.0); Mean Corpuscular Volume 86.7 fL (80.0-94.0); Mean Platelet Volume 11.2 fL (9.5-13.5); Monocytes Absolute Auto 0.5 10^3/uL (0.3-0.8); Monocytes Percent Auto 5.6 % (1.7-12.0); Neutrophils Absolute Auto 5.7 10^3/uL (1.4-6.5); Neutrophils Percent Auto 63.7 % (43.0-75.0); Platelet Count 239 10^3/uL (150-450); Red Blood Count 5.19 10^6/uL (4.70-6.10); Red Cell Distribution Width 12.1 % (11.0-15.0)
[2024-06-07 11:59] LABS: Erythrocyte Sedimentation Rate 20 mm/hr (<=15)
[2024-06-07 12:09] LABS: C Reactive Protein <0.50 mg/dL (<=0.50); Lactate Dehydrogenase 160 U/L (85-227)
== END 2024-06-07 11:28 | disposition home or self-care (01) ==
LOC: LAB 11:30
PROVIDERS: PCP Internal Medicine; Visit Provider Internal Medicine Hematology & Oncology
DX: D72.89 Other specified disorders of white blood cells (principal); D64.9 Anemia, unspecified
CPT/HCPCS: 36415; 83615; 85025; 85652; 86140

== ENCOUNTER 2024-06-14 07:27 | Outpatient (RCR) | payer OTHER, SELFPAY | END 2024-06-15 08:18 | disposition home or self-care (01) | LOC: HEMC 07:27 | PROVIDERS: PCP Internal Medicine; Visit Provider Internal Medicine Hematology & Oncology | DX: D72.89 Other specified disorders of white blood cells (principal); D64.9 Anemia, unspecified; E66.01 Morbid (severe) obesity due to excess calories; E11.9 Type 2 diabetes mellitus without complications; Z79.85 Long-term (current) use of injectable non-insulin antidiabetic drugs; Z68.43 Body mass index [BMI] 50.0-59.9, adult | CPT/HCPCS: G0463 ==

== ENCOUNTER 2025-02-20 12:11 | Outpatient (OUT) | payer OTHER, SELFPAY ==
[2025-02-20 12:34] LABS: Hematocrit 43.6 % (42.0-54.0); Hemoglobin 15.0 g/dL (14.0-18.0); Mean Corpuscular HGB Conc 34.4 g/dL (29.9-35.2); Mean Corpuscular Hemoglobin 29.6 pg (25.9-34.0); Mean Corpuscular Volume 86.2 fL (80.0-94.0); Platelet Count 224 10^3/uL (150-450); Red Blood Count 5.06 10^6/uL (4.70-6.10); White Blood Count 8.0 10^3/uL (4.0-11.0)
[2025-02-20 13:19] LABS: Eosinophils Absolute Manual 0.08 10^3/uL (0.00-0.70); Eosinophils Percent Manual 1.0 % (0.9-7.0); Lymphocytes Absolute Manual 1.84 10^3/uL (1.20-3.80); Lymphocytes Percent Manual 23.0 % (20.5-60.0); Monocytes Absolute Manual 0.24 10^3/uL (0.30-0.80); Monocytes Percent Manual 3.0 % (1.7-12.0); Segmented Neut Absolute Manual 5.76 10^3/uL (1.4-6.5); Segmented Neutrophils % Manual 72.0 (43.0-75.0)
[2025-02-20 13:20] LABS: Basophils Abs Manual 0.00 10^3/uL (0.00-0.10); Basophils Percent Manual 0.0 % (0.2-2.0); Metamyelocytes Absolute Manual 0.08
[2025-02-20 14:52] LABS: Alanine Aminotransferase 42 U/L (16-63); Albumin Globulin Ratio 1.0; Albumin Level 3.8 g/dL (3.4-5.0); Alkaline Phosphatase 71 U/L (46-116); Anion Gap 11.8; Aspartate Amino Transferase 16 U/L (15-37); Blood Urea Nitrogen 16.0 mg/dL (7.0-18.0); Calcium 9.1 mg/dL (8.5-10.1); Carbon Dioxide 26.6 mmol/L (21.0-32.0); Chloride 107 mmol/L (98-107); Estimated GFR (African America >60 (>=60 mL/min/1.73m^2); Estimated GFR (Non-African Ame >60 (>=60 mL/min/1.73m^2); Globulin 3.8 g/dL; Glucose 127 mg/dL (74-106); Potassium 4.4 mmol/L (3.5-5.1); Sodium 141 mmol/L (136-145); Total Protein 7.6 g/dL (6.4-8.2)
== END 2025-02-20 12:12 | disposition home or self-care (01) ==
LOC: LAB 12:11
PROVIDERS: Visit Provider Internal Medicine Hematology & Oncology
DX: D72.89 Other specified disorders of white blood cells (principal); D64.9 Anemia, unspecified
CPT/HCPCS: 36415; 80053; 83615; 85007; 85027; 85652; 86140